=== PATIENT | male | born 1945 | race Caucasian/White ===

== ENCOUNTER → 2017-03-02 | Outpatient (CLI) | payer OTHER | LOC: BHFA 14:45 | PROVIDERS: ATTEND Internal Medicine Cardiovascular Disease | DX: I71.9 Aortic aneurysm of unspecified site, without rupture (principal) ==

== ENCOUNTER → 2017-03-16 | Outpatient (CLI) | payer OTHER ==
[~2017-03-16] MED LIST: IOPAMIDOL (ISOVUE 370) 100 ML BTL IV ONE
== END ==
LOC: FIMAGING 15:57
PROVIDERS: ATTEND Internal Medicine Cardiovascular Disease
DX: I71.2 Thoracic aortic aneurysm, without rupture (principal); I25.10 Atherosclerotic heart disease of native coronary artery without angina pectoris
CPT/HCPCS: 75574; Q9967

== ENCOUNTER 2017-03-20 07:14 | Day surgery (SDC) | payer OTHER ==
[2017-03-20] MEDS ORDERED: ASPIRIN EC 325 MG TAB PO ONE ×2 (08:08→08:50)
[2017-03-20] MEDS ORDERED: FAMOTIDINE 20 MG TAB PO ONE (08:08)
[2017-03-20] MEDS ORDERED: NS 1,000 ML IV ONE (08:08)
[2017-03-20] MEDS ORDERED: diphenhydrAMINE 25 MG CAP PO ONE ×2 (08:08→08:50)
[2017-03-20] MEDS ORDERED: DIAZEPAM 5 MG TAB PO ONE (08:08)
--- NOTE | 2017-03-20 08:39 | CPEKG ---
Heart Rate: 45 RR Interval: 1333 P-R Interval: 220 QRSD Interval: 124 QT Interval: 504 QTC Interval: 437 P [place]: -19 QRS [place]: -51 T Wave [place]: 80 EKG Severity - ABNORMAL ECG - EKG Impression: BRADYCARDIA WITH IRREGULAR RATE 37-52 EKG Impression: NONSPECIFIC IVCD WITH LAD EKG Impression: LEFT VENTRICULAR HYPERTROPHY Electronically Signed By: Joel Head 23-Mar-2017 07:51:05
[2017-03-20] MEDS ORDERED: DIAZEPAM 5 MG TAB ONE (08:50)
[2017-03-20] MEDS ORDERED: FAMOTIDINE 20 MG TAB ONE (08:50)
[2017-03-20] MEDS ORDERED: LIDOCAINE 1% 300 MG/30 ML SDV ONE (08:52)
[2017-03-20] MEDS ORDERED: fentaNYL 100 MCG/2 ML INJ ONE (08:52)
[2017-03-20] MEDS ORDERED: MIDAZOLAM 2 MG/2 ML VIAL ONE (08:52)
[2017-03-20] MEDS ORDERED: IOPAMIDOL (ISOVUE-370) 150 ML BTL IV ONE (08:53)
[2017-03-20 09:07] LABS: % IMMATURE GRANULYOCYTES 0.2 % (0.0-1.1); ABSOLUTE IMMATURE GRANULOCYTES 0.01 10^3/uL (0.00-0.10); ADD DIFF? NO; ADD MORPH? NO; ADD SCAN? NO; ATYPICAL LYMPHOCYTE FLAG 10 (0-99); FRAGMENT RBC FLAG 20 (0-99); HEMATOCRIT 38.9 % (40.0-51.0); HEMOGLOBIN 13.4 g/dL (13.7-17.5); LEFT SHIFT FLG 0 (0-99); LIPEMIA HEMOLYSIS FLAG 90 (0-99); MEAN CELL HEMOGLOBIN 32.5 pg (27.9-34.1); MEAN CELL HEMOGLOBIN CONCENTR. 34.4 g/dL (32.4-36.7); MEAN CELL VOLUME 94.4 fL (81.5-99.8); MEAN PLATELET VOLUME 10.1 fL (8.7-11.7); PLATELET CLUMPS FLAG 10 (0-99); PLATELET COUNT 180 10^3/uL (150-400); RED BLOOD CELL COUNT 4.12 10^6/uL (4.40-6.38); RED CELL DISTRIBUTION WIDTH 13.9 % (11.5-15.2)
[2017-03-20 09:14] LABS: ANION GAP 13 mEq/L (8-16); CALCIUM 9.8 mg/dL (8.5-10.4); CARBON DIOXIDE 27 mEq/l (22-31); CHLORIDE 101 mEq/L (97-110); CHOLESTEROL 130 mg/dL (140-220); CHOLESTEROL/HDL RATIO 2.24 RATIO (1.00-4.97); CREATININE 1.4 mg/dL (0.7-1.3); GLOMERULAR FILTRATION RATE 50; GLUCOSE 95 mg/dL (70-100); HIGH DENSITY LIPOPROTEIN 58 mg/dL (40-65); LDL/HDL RATIO 1.09 RATIO (1.00-3.64); LOW DENSITY LIPOPROTEIN 63 mg/dL (80-100); MAGNESIUM 2.3 mg/dL (1.6-2.3); NON-HIGH DENSITY LIPOPROTEIN 72 mg/dL (90-129); SODIUM 141 mEq/L (134-144); TRIGLYCERIDE 48 mg/dL (40-150); VERY LOW DENSITY LIPOPROTEINS 9 mg/dL (8-25)
[2017-03-20 09:19] LABS: INR 1.13 (0.83-1.16); PROTIME(PATIENT) 14.4 SEC (12.0-15.0)
[2017-03-20] MEDS ORDERED: methylPREDNISolone SOD SUCC 125 MG/2 ML VIAL ONE (09:39)
[2017-03-20] MEDS ORDERED: LABETALOL HCL 5 MG/ML 20 ML MDV ONE (10:45)
--- NOTE | 2017-03-20 11:53 | CPIP ---
[f rep st] INVASIVE CARDIAC PROCEDURE DATE OF PROCEDURE: 03/20/2017 PROCEDURE PERFORMED: 1. Coronary angiography. 2. Right heart catheterization. INDICATION: Preoperative evaluation prior to AVR and ascending aortic aneurysm repair. ACCESS: Patient was prepped and draped in sterile fashion, 1% lidocaine was used to anesthetize the right inguinal region. A 6-Nauruan introducer sheath was placed selectively into the right common f emoral artery via modified Seldinger technique. The 6-Nauruan introducer sheath was later exchanged for a 7-Nauruan introducer sheath via exchange wire technique. A 7-Nauruan introducer sheath was plac ed selectively into the right common femoral vein via modified Seldinger technique. CORONARY ANGIOGRAPHY: A 6-Nauruan JL6 catheter was advanced to the left main coronary artery, and im ages obtained. The left main coronary artery bifurcated into LAD and circumflex coronary arteries. The left main coronary artery appeared normal. The left anterior descending coronary artery had mi ld diffuse disease throughout. In the midvessel, there was a long segmental 40% stenosis present. The left anterior descending coronary artery gave rise to 1 prominent diagonal branch. The diagonal branch had mild luminal irregularities throughout. There was no stenosis greater than 20%. The ci rcumflex coronary artery was a moderate-sized vessel. The circumflex coronary artery was nondominan t. Circumflex coronary artery had an ostial 20% stenosis present. In the midvessel, there was a lo ng segmental 30% stenosis present. The second OM artery was a dominant OM artery. The second OM ar ernie had no significant flow-limiting disease. A 6-Nauruan JR4 was advanced to the right coronary ar ernie, and images obtained. The right coronary artery was diffusely ectatic in the proximal and mids egment. There was no significant obstructive disease within the vessel. RIGHT HEART CATHETERIZATION: Right heart catheter was advanced into the right atrium, and pressure obtained. The right atrial pressure was 12 mmHg. The catheter was then advanced in the right ventr icle, and pressure obtained. The right ventricular pressure was 39/9 mmHg. Catheter was then advanc ed in the pulmonary artery, and pressure obtained. Pulmonary artery pressure was 40/23 mmHg with a mean pulmonary artery pressure of 30 mmHg. Catheter was then advanced in the pulmonary capillary we dge position, and pressure obtained. The pulmonary capillary wedge pressure was 21 mmHg. The cardi ac output was 7.95. The cardiac index was 3.61. COMPLICATIONS: None. CONCLUSIONS: 1. Mild to moderate coronary artery disease without flow limitation. 2. Mild pulmonary hypertension with a mean pulmonary artery pressure of 30 mmHg and a transpulmonar y gradient of 9 mmHg. 3. Plan is for surgical evaluation. /[id number]/MODL
== END 2017-03-20 15:00 | disposition home or self-care (01) ==
LOC: FCATH 07:14
PROVIDERS: ATTEND Internal Medicine Cardiovascular Disease
PROC: B2111ZZ Fluoroscopy of Multiple Coronary Arteries using Low Osmolar Contrast (ICD-10-PCS; principal; 2017-03-20)
PROC: 4A023N6 Measurement of Cardiac Sampling and Pressure, Right Heart, Percutaneous Approach (ICD-10-PCS; principal; 2017-03-20)
DX: I71.2 Thoracic aortic aneurysm, without rupture (principal); I35.1 Nonrheumatic aortic (valve) insufficiency; I25.10 Atherosclerotic heart disease of native coronary artery without angina pectoris; I27.2 Other secondary pulmonary hypertension; R07.89 Other chest pain; R06.02 Shortness of breath; R94.39 Abnormal result of other cardiovascular function study; G47.33 Obstructive sleep apnea (adult) (pediatric); E66.9 Obesity, unspecified; I10 Essential (primary) hypertension; E11.9 Type 2 diabetes mellitus without complications; Z68.31 Body mass index [BMI] 31.0-31.9, adult
CPT/HCPCS: C1760; J1200; J1644; J2250; J3010; J3490; Q9967

== ENCOUNTER → 2017-05-05 | Outpatient (CLI) | payer OTHER | LOC: BHFA 13:15 | PROVIDERS: ATTEND Thoracic Surgery (Cardiothoracic Vascular Surgery) | DX: Z01.810 Encounter for preprocedural cardiovascular examination (principal) ==

== ENCOUNTER 2017-06-08 07:15 | Inpatient (IN) | payer OTHER ==
--- NOTE | 2017-06-07 08:27 | PDGENHP ---
History and Physical - Chief Complaint AI, asc ao aneurysm - History of Present Illness 72M with moderate AI and asc ao aneurysm of 5.1 cm here for elective aneurysm repair and possible AVR. Pt without c/o acute CHF since last seen at clinic. He denies light-headedness, SOB, chest pain, abdominal pain. BLE are chronically edematous. History Information - Allergies/Home Medication List Allergies/Adverse Reactions: carrot Allergy (Verified 04/30/17 13:33) Corticosteroids (Glucocorticoids) Allergy (Verified 03/20/17 06:48) Penicillins Allergy (Verified 06/11/15 02:35) Home Medications: Doxazosin Mesylate [Cardura 4 MG (*)] 4 mg PO HS 09/11/14 [Last Taken 06/07/17] Furosemide [Lasix 40 MG (*)] 40 mg PO DAILY 09/11/14 [Last Taken 06/07/17] metFORMIN HCL [Glucophage 1000 mg] 1,000 mg PO BIDMEAL 09/11/14 [Last Taken 04/12] Ascorbic Acid [Vitamin C 500 mg (*)] 500 mg PO BID 03/20/17 [Last Taken 06/07/17 ] Aspirin [Aspirin 81mg (*)] 81 mg PO DAILY 03/20/17 [Last Taken 06/06/17] Cholecalciferol Vit D3 [Vitamin D3 (*)] 5,000 units PO DAILY 03/20/17 [Last Taken 06/07/17] Labetalol HCl [Trandate 200 mg (*)] 200 mg PO BID 03/20/17 [Last Taken 06/07/17] Melatonin [Melatonin 1 mg] 1 - 3 mg PO HS PRN 03/20/17 [Last Taken 06/07/17] Multivitamins [Multivitamin (*)] 1 each PO DAILY 03/20/17 [Last Taken 06/07/17] Valsartan [Diovan (*)] 80 mg PO BID 03/20/17 [Last Taken 06/07/17] Atorvastatin Calcium [Lipitor 40 mg (*)] 40 mg PO HS 04/28/17 [Last Taken ] Cyanocobalamin [Vitamin B12 (*)] 1,000 mcg PO DAILY 04/28/17 [Last Taken ] Herbals/Supplements -Info Only 1 ea PO DAILY 04/28/17 [Last Taken 06/07/17] I have personally reviewed and updated: medical history, social history, surgical history - Past Medical History CHF, diabetes type 2, hypertension - Surgical History Reports: neurological surgery (age 20) - Social History Smoking Status: Never smoked Review of Systems Review of Systems: ROS: 10pt was reviewed & negative except for what was stated in HPI & below Physical Exam Physical Exam: Constitutional: no apparent distress, appears nourished, not in pain, chronically ill appearing Eyes: anicteric sclera Ears, Nose, Mouth, Throat: hearing normal Cardiovascular: regular rate and rhythym, edema Respiratory: no respiratory distress Gastrointestinal: soft, non-tender abdomen Skin: warm, normal color Psychiatric: interacting appropriately, not anxious, not encephalopathic, poor memory Lab Data & Imaging Review Patient ABO/Rh O POSITIVE 06/02/17 11:37 Antibody Screen NEGATIVE 06/02/17 11:37 Assessment & Plan Assessment: 72M with asc ao aneurysm and moderate AI Plan: aneurysm repair, possible AVR
[~2017-06-08 07:15] MED LIST changes: +ADENOSINE 6 MG/2 ML VIAL ONE; +ALBUMIN 5% 250 ML BOTTLE IV ONE; +AMINOCAPROIC ACID 5 GM/20 ML VIAL IV ONE; +AMINOCAPROIC ACID 5 GM/20 ML VIAL ONE; +AMIODARONE HCL 150 MG/3 ML VIAL ONE; +CALCIUM CHLORIDE 1 GM/10 ML INJ ONE; +CITRATE DEXTROSE SOLN 500 ML BAG MISC ONE; +CITRATE DEXTROSE SOLN 500 ML BAG ONE; +DOPamine/DEXTROSE/250 ML BAG IV ONE; +HEPARIN 10,000 UNIT/10 ML MDV ONE; +INSULIN REGULAR HUMAN 100 UNIT in NS 100 ML IV ONE; -IOPAMIDOL (ISOVUE 370) 100 ML BTL IV ONE; +LIDOCAINE 2% 100 MG/5 ML SYR ONE; +MAGNESIUM SULFATE 1 GM/2 ML VIAL ONE; +MANNITOL 25% 12.5 GM/50 ML VIAL IVP ONE; +MILRINONE/DEXTROSE/100 ML BAG IV ONE; +MUPIROCIN 2% 22 GM OINT NS ONE; +NA BICARBONATE 50 MEQ/50 ML VIAL ONE; +NOREPINEPHRINE BITARTRATE 16 MG in NS 250 ML IV ONE; +PHENYLEPHRINE HCL 50 MG in NS 250 ML IV ONE; +POTASSIUM Cl (KCl) 20 MEQ/50 ML BAG IV ONE; +PROTAMINE SULFATE 50 MG/5 ML VIAL IVP ONE; +SODIUM BICARBONATE 20 MEQ, LIDOCAINE 1% 10 ML in NORMOSOL-R 1,000 ML MISC ONE; +ceFAZolin 1 GM VIAL ONE; +ceFAZolin 2 GM/SWFI 2 GM/20 ML SYR IVP ONE; +methylPREDNISolone SOD SUCC 1 GM/8 ML VIAL ONE; +niCARdipine/NACL 200 ML IV SCH; +niCARdipine/NACL/200 ML BAG IV ONE
[2017-06-08] MEDS ORDERED: LIDOCAINE 1% 2 ML INJ ONE (09:12)
[2017-06-08] MEDS ORDERED: MUPIROCIN 2% 22 GM OINT NS ONE (09:15)
[2017-06-08] MEDS ORDERED: ceFAZolin 2 GM/SWFI 2 GM/20 ML SYR IVP ONE (09:15)
[2017-06-08] MEDS ORDERED: LR 1,000 ML IV ONE (09:21)
[2017-06-08] MEDS ORDERED: LIDOCAINE 1% 2 ML INJ ID PRN (09:21)
[2017-06-08] MEDS ORDERED: MIDAZOLAM 2 MG/2 ML VIAL IVP ONE (09:38)
[2017-06-08] MEDS ORDERED: PROPOFOL/EMULSION 500 MG/50 ML BOTTLE IV ONE (09:45)
[2017-06-08] MEDS ORDERED: fentaNYL 250 MCG/5 ML INJ ONE (09:45)
[2017-06-08] MEDS ORDERED: MIDAZOLAM 2 MG/2 ML VIAL ONE (09:45)
[2017-06-08] MEDS ORDERED: REMIFENTANIL HCL 1 MG VIAL ONE (09:45)
[2017-06-08] MEDS ORDERED: ONDANSETRON 4 MG/2 ML VIAL ONE (09:46)
[2017-06-08] MEDS ORDERED: LIDOCAINE 2% 100 MG/5 ML SYR ONE (09:46)
[2017-06-08] MEDS ORDERED: ROCURONIUM 100 MG/10 ML VIAL ONE (09:46)
[2017-06-08] MEDS ORDERED: DEXAMETHASONE 4 MG/ML VIAL ONE ×2 (09:46)
[2017-06-08] MEDS ORDERED: CALCIUM CHLORIDE 1 GM/10 ML INJ ONE (09:46)
[2017-06-08] MEDS ORDERED: PHENYLEPHRINE HCL 100 MCG/ML SYR ONE ×2 (09:46)
[2017-06-08] MEDS ORDERED: LIDOCAINE HCL 160 MG/4 ML LTA KIT TP ONE (09:52)
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
[2017-06-08] MEDS ORDERED: ALBUMIN 5% 250 ML BOTTLE IV ONE (12:11)
[2017-06-08] MEDS ORDERED: MAGNESIUM SULF 2 GM/WATER 50 ML BAG IV ONE (12:11)
[2017-06-08] MEDS ORDERED: DEXMEDETOMIDINE IN 0.9 % NACL 100 ML IV SCH (13:00)
[2017-06-08] MEDS ORDERED: DEXMEDETOMIDINE HCL 400 MCG in NS 100 ML IV SCH (13:00)
[2017-06-08] MEDS ORDERED: epHEDrine SULFATE 10 MG/ML SYR ONE ×2 (13:34→13:37)
[2017-06-08] MEDS ORDERED: GLYCOPYRROLATE 0.2 MG/1 ML VIAL ONE ×2 (13:37)
[2017-06-08] MEDS ORDERED: MINERAL OIL 10 ML VIAL ONE (13:44)
[2017-06-08] MEDS ORDERED: SUGAMMADEX SODIUM 200 MG/2 ML VIAL IVP ONE (13:59)
[2017-06-08] MEDS ORDERED: ACETAMINOPHEN 500 MG TAB PO PRN (14:18)
[2017-06-08] MEDS ORDERED: LABETALOL HCL 5 MG/ML 20 ML MDV IVP PRN (14:18)
[2017-06-08] MEDS ORDERED: NALOXONE HCL 0.4 MG/ML INJ IVP PRN (14:18)
[2017-06-08] MEDS ORDERED: PROMETHAZINE HCL 25 MG/ML INJ IVP PRN (14:18)
[2017-06-08] MEDS ORDERED: LR 500 ML IV PRN (14:18)
[2017-06-08] MEDS ORDERED: ONDANSETRON 4 MG/2 ML VIAL IVP PRN ×2 (14:18→14:30)
[2017-06-08] MEDS ORDERED: OXYCODONE/APAP 5/325 TAB PO PRN (14:18)
[2017-06-08] MEDS ORDERED: HYDROCODONE/APAP 5/325 TAB PO PRN (14:18)
[2017-06-08] MEDS ORDERED: ALBUTEROL 3 ML DEYVIAL IH PRN (14:18)
[2017-06-08] MEDS ORDERED: METOCLOPRAMIDE 10 MG/2 ML VIAL IVP PRN ×2 (14:18→14:30)
[2017-06-08] MEDS ORDERED: fentaNYL 100 MCG/2 ML INJ IVP PRN ×2 (14:18→14:30)
[2017-06-08] MEDS ORDERED: DEXAMETHASONE 4 MG/ML VIAL IVP PRN (14:18)
[2017-06-08] MEDS ORDERED: MEPERIDINE 25 MG/ML SYR IVP PRN (14:18)
[2017-06-08] MEDS ORDERED: ACETAMINOPHEN 650 MG SUPP PR PRN (14:30)
[2017-06-08] MEDS ORDERED: BISACODYL 10 MG SUPP PR PRN (14:30)
[2017-06-08] MEDS ORDERED: INSULIN REGULAR HUMAN 100 UNIT in NS 100 ML IV SCH (14:30)
[2017-06-08] MEDS ORDERED: POLYETHYLENE GLYCOL 3350 17 GM PKT PO PRN (14:30)
[2017-06-08] MEDS ORDERED: NS 1,000 ML IV SCH (14:30)
[2017-06-08] MEDS ORDERED: PANTOPRAZOLE SODIUM 40 MG VIAL IVP ONE (14:30)
[2017-06-08] MEDS ORDERED: MAGNESIUM HYDROXIDE 30 ML UDCUP PO PRN (14:30)
[2017-06-08] MEDS ORDERED: POTASSIUM Cl (KCl) 50 ML IV PRN (14:30)
[2017-06-08] MEDS ORDERED: MAGNESIUM SULF 2 GM/WATER 50 ML IV ONE (14:30)
[2017-06-08] MEDS ORDERED: D50W 25 GM/50 ML SYR IVP PRN (14:30)
[2017-06-08] MEDS ORDERED: SODIUM CL NASAL 45 ML BTL EACHNARE PRN (14:30)
[2017-06-08] MEDS ORDERED: LACTULOSE 20 GM/30 ML UDCUP PO PRN (14:30)
[2017-06-08] MEDS ORDERED: CEPACOL LOZENGE PO PRN (14:30)
[2017-06-08] MEDS ORDERED: ONDANSETRON DISINTEGRATING 4 MG TAB PO PRN (14:30)
[2017-06-08] MEDS: ALBUMIN 5% 250 ML IV PRN ×2 (15:36→15:38)
--- NOTE | 2017-06-08 15:43 | ASMTCMCOM ---
CM Note CM Note Notes: 72 year old male admitted for AAA and AV. Had an elective AAAR and AVR. He has a hx of CHF, DM-2, HTN. Therapies to eval, JUNI to follow for discharge needs. Date Signed: 06/08/2017 03:43 PM Electronically Signed By:Carmen Magallanes LCSW
--- NOTE | 2017-06-08 16:15 | POSTANESTH ---
Post Anesthetic Evaluation Cardiovascular Status: Similar to Pre-Op Cond Respiratory Status: Similar to Pre-op Cond., Tx Decrease in SpO2 Level of Consciousness/Mental Status: Can Participate in Eval, Mildly Sleepy, Arousable Pain Control: Adequate, Prn Tx Ordered Nausea/Vomiting Control: Adequate, Prn Tx Ordered Complications Possibly Related to Anesthesia: None Noted
[2017-06-08] MEDS ORDERED: ALBUMIN 5% 500 ML BOTTLE IV ONE ×2 (16:56→22:09)
[2017-06-08] MEDS ORDERED: DOPamine/DEXTROSE/250 ML BAG IV ONE (16:57)
[2017-06-08] MEDS ORDERED: ALBUMIN 5% 500 ML IV ONE ×2 (17:30→22:30)
[2017-06-08 17:37] LABS: CALCULATED OXYGEN SATURATION 92 % (92-95); O2 CONCENTRATIION 60 % (0-100)
[2017-06-08 17:37] LABS: CALCULATED OXYGEN SATURATION 93 % (92-95); O2 CONCENTRATIION 60 % (0-100)
[2017-06-08 19:26] LABS: BICARBONATE 26 mEq/L (22-26); MEASURED OXYGEN SATURATION 92 % (92-95); PCO2 51 mmHg (34-38); PO2 64 mmHg (65-75); TCO2 27 mEq/L (23-27)
[2017-06-08] MEDS ORDERED: NALOXONE HCL 0.4 MG/ML INJ ONE (19:39)
[2017-06-08] MEDS ORDERED: KETOROLAC 15 MG/1 ML SDV ONE (19:39)
[2017-06-08] MEDS ORDERED: NALOXONE HCL 0.4 MG/ML INJ IVP ONE (19:45)
[2017-06-08] MEDS: KETOROLAC 15 MG/1 ML SDV IVP SCH (20:04)
[2017-06-08] MEDS: MUPIROCIN 2% 22 GM OINT NS SCH (21:31)
[2017-06-08] MEDS: SENNOSIDES/DOCUSATE SODIUM TAB PO SCH (21:32)
[2017-06-08] MEDS: ceFAZolin 2 GM/DEXTROSE 100 ML IV SCH (22:20)
[2017-06-09 00:58] LABS: HEMATOCRIT 25.2 % (40.0-51.0); HEMOGLOBIN 8.7 g/dL (13.7-17.5); MEAN CELL HEMOGLOBIN 32.2 pg (27.9-34.1); MEAN CELL HEMOGLOBIN CONCENTR. 34.5 g/dL (32.4-36.7); MEAN CELL VOLUME 93.3 fL (81.5-99.8); RED BLOOD CELL COUNT 2.7 10^6/uL (4.40-6.38); RED CELL DISTRIBUTION WIDTH 13.9 % (11.5-15.2)
[2017-06-09] MEDS: KETOROLAC 15 MG/1 ML SDV IVP SCH ×4 (01:01→19:31)
--- NOTE | 2017-06-09 03:23 | GOP ---
[f rep st] OPERATIVE REPORT DATE OF OPERATION: 06/08/2017 SURGEON: Valeriy Bhatt DO STEWARD/STEWARDESS: Wilfredo Casiano PA-C ANESTHESIOLOGIST: Markus Garcia MD PREOPERATIVE DIAGNOSIS: Aortic insufficiency with ascending aortic aneurysm. POSTOPERATIVE DIAGNOSIS: Aortic insufficiency with ascending aortic aneurysm. PROCEDURE PERFORMED: 1. Ascending aorta replacement #32 Hemashield graft. 2. Aortic valve replacement with a 25 Magna bioprosthesis. FINDINGS: DESCRIPTION OF PROCEDURE: The patient was consented for surgery, brought to the operating room, intu bated. Monitoring lines were placed. He was prepped and draped in sterile classical manner. Sterno neeta was performed. The pericardium was densely adherent to the epicardium, from presumed previous p ericarditis. Sharp dissection was performed, marsupializing the aorta which measured 5.5 cm and the right atrium. Transverse arch was cannulated, as was the right atrium. Cardiopulmonary bypass was b egun. Retrograde placement appeared to be unnaturally easy. 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 We th en convert to bicaval cannulation, only to be certain that there was not some other anomalous situati on, and opened the right atrium on bypass. There was, in fact, a persistent left-sided cava, so no f urther exposure was necessary. I then closed the right atrium, arrested the heart with cross-clampin g the aorta at the sinotubular junction where it measured 3.5 cm and giving direct coronary perfusion throughout the procedure, as well as topical hypothermia and systemic cooling. We then excised a thickened retracted trileaflet valve. The anulus was somewhat dilated. Sinuses we re mildly dilated, but thick walled. For that reason, no root replacement was performed. We then pl aced a 25 mm Magna valve in a supraannular position with interrupted 2-0 Tycron pledgeted mattress kimble tures. We then sized the patient for a 32 Hemashield graft which was sewn end-to-side both proximall y and distally with 3-0 Prolene, reinforced with BioGlue. They were tested, and no leak was identifi ed. We then removed the cross-clamp with suction on the ascending aortic vent with spontaneous cardi ac activity noted to resume. We spent some time in Trendelenburg, de-airing the patient with an LV s ump and ascending aortic vent. When no further air was identified, he was easily weaned from bypass. Heparin was reversed with protamine. The cannula was removed and oversewn. We spent some time correcting coagulopathy, and when we were satisfied he was hemodynamically stable and no longer bleeding, the sternum was closed, as was the thymic fat and pericardium. The patient w as returned to ICU in stable condition. SURGEON: Valeriy Bhatt DO /[id number]/MODL
--- NOTE | 2017-06-09 04:54 | GCON ---
[f rep st] CONSULTATION CALL CENTER PROFESSIONAL CONSULTATION DATE OF CONSULTATION: 06/08/2017 REASON FOR ADMISSION: Postoperative ascending aortic aneurysm repair and aortic valve replacement. HISTORY OF PRESENT ILLNESS: The patient is a 72-year-old white male with an extensive past medical h istory including congestive heart failure, diabetes, hypertension. He was again examined postoperati vely after receiving an aneurysm repair and aortic valve replacement. He was extubated postoperative ly and he is currently somewhat sedated, and slightly agitated. He is unable to provide any history. All history is gleaned from the medical record. PAST MEDICAL HISTORY: Again significant for congestive heart failure, ascending aortic aneurysm, hyp ertension, diabetes. ALLERGIES: Include carrots, glucocorticoids, and penicillin. MEDICATIONS: At home include vitamin B12, atorvastatin, valsartan, melatonin, labetalol, aspirin, ch olecalciferol, ascorbic acid, metformin, Lasix, and Cardura. SOCIAL HISTORY: No history of tobacco use, unknown alcohol use. PHYSICAL EXAMINATION: VITAL SIGNS: Blood pressure is 168/72, pulse is 45, respirations 20, temperat ure is 36.9, oxygen saturation 95% on supplemental oxygen. GENERAL: He is a well-developed, mildly overweight, elderly white male, who is resting comfortably on supplemental oxygen. HEENT: Eyes are PERRLA, EOMI. Throat exam is deferred. NECK: Supple. There is no cervical adenopathy. HEART: Re gular rate and rhythm with a 2/6 systolic murmur of the left sternal border without radiation. LUNGS : Diminished breath sounds, but no wheeze. ABDOMEN: Soft, nontender. Bowel sounds are present in all 4 quadrants. EXTREMITIES: No clubbing, cyanosis, or edema. LABORATORY DATA: Laboratories are currently pending. Chest x-ray is currently pending. IMPRESSION: 1. Status post aortic aneurysm repair and aortic valve replacement. 2. Respiratory, currently stable. 3. Diabetes. 4. Hypertension. 5. Congestive heart failure. RECOMMENDATIONS: 1. Adequate pain control. 2. DVT and PE prophylaxis, holding anticoagulation now. 3. Aggressive blood sugar control. 4. Follow blood pressure closely. 5. PT and OT. 6. Early ambulation. /[id number]/MODL
[2017-06-09] MEDS: ceFAZolin 2 GM/DEXTROSE 100 ML IV SCH ×3 (05:27→21:36)
[2017-06-09 06:34] LABS: % IMMATURE GRANULYOCYTES 0.3 % (0.0-1.1); ABSOLUTE IMMATURE GRANULOCYTES 0.02 10^3/uL (0.00-0.10); ADD DIFF? NO; ADD MORPH? NO; ADD SCAN? NO; ATYPICAL LYMPHOCYTE FLAG 0 (0-99); FRAGMENT RBC FLAG 0 (0-99); HEMATOCRIT 28.1 % (40.0-51.0); HEMOGLOBIN 9.8 g/dL (13.7-17.5); LEFT SHIFT FLG 40 (0-99); LIPEMIA HEMOLYSIS FLAG 90 (0-99); MEAN CELL HEMOGLOBIN 31.9 pg (27.9-34.1); MEAN CELL HEMOGLOBIN CONCENTR. 34.9 g/dL (32.4-36.7); MEAN CELL VOLUME 91.5 fL (81.5-99.8); MEAN PLATELET VOLUME 9.9 fL (8.7-11.7); PLATELET CLUMPS FLAG 10 (0-99); PLATELET COUNT 94 10^3/uL (150-400); RED BLOOD CELL COUNT 3.07 10^6/uL (4.40-6.38); RED CELL DISTRIBUTION WIDTH 14.3 % (11.5-15.2)
[2017-06-09] MEDS: HEPARIN 5,000 UNIT/0.5 ML SYR SC SCH (06:46)
[2017-06-09 07:03] LABS: ANION GAP 12 mEq/L (8-16); CALCIUM 8.8 mg/dL (8.5-10.4); CARBON DIOXIDE 25 mEq/l (22-31); CHLORIDE 108 mEq/L (97-110); CREATININE 0.9 mg/dL (0.7-1.3); GLOMERULAR FILTRATION RATE > 60; GLUCOSE 115 mg/dL (70-100); POTASSIUM 4.4 mEq/L (3.5-5.2); SODIUM 145 mEq/L (134-144)
--- NOTE | 2017-06-09 07:55 | SOAPPROG ---
SOAP Progress Note Assessment/Plan: POD #1: Ascending aortic replacement with #32 graft, aortic valve replacement with #25 Magna bioprosthesis Asc ao aneurysm with mod AI s/p asc ao replacement and AVR with bioprosthesis - Wean dopamine as tolerated - AL to remain while on pressors - CTs to suction d/t air leak - FC to be dc'd - SCDs for DVT prophylaxis, heparin SQ on hold while platelets depressed Acute blood loss anemia - s/p 2U PRBC, 2U FFP, 1U platelets with continual ooze - will monitor and transfuse prn Chronic class II CHF, diastolic - HF meds when appropriate h/o remote TBI with pre-confusion - Slightly more confused today without evidence of neurological injury Subjective: Denies pain. Objective: Vital Signs Temp Pulse Resp BP Pulse Ox 37.3 C 53 L 16 125/58 H 98 06/09/17 07:48 06/09/17 07:48 06/09/17 07:48 06/09/17 07:48 06/09/17 07:48 Laboratory Results 06/09/17 06:20 06/09/17 06:20 06/08/17 06/09/17 06/10/17 05:59 05:59 05:59 Intake Total 3743.7 Output Total 2970 75 Balance 773.7 -75 Physical Exam - Physical Exam General Appearance: WD/WN, alert, no apparent distress EENT: No scleral icterus (R), No scleral icterus (L) Neck: normal inspection Respiratory: No respiratory distress Cardiac/Chest: bradycardia Abdomen: non-tender, soft, No guarding Skin: normal color, warm/dry Extremities: pedal edema Neuro/Psych: no motor/sensory deficits, alert, normal mood/affect, cognition abnormalities ICD10 Worksheet Patient Problems: Problems Problem Status Onset S/P AVR (aortic valve replacement) Acute S/P aortic aneurysm repair Acute Aortic aneurysm Chronic Aortic insufficiency Chronic
[2017-06-09] MEDS ORDERED: ASPIRIN 81 MG CHEWABLE TAB PO SCH (09:00)
--- NOTE | 2017-06-09 09:09 | PDINTPN ---
[place] Progress Note Assessment/Plan: Assessment: * Status post ascending aortic aneurysm repair and aortic valve replacement * Congestive heart failure * Hypertension * Diabetes-blood sugars well controlled * History of closed head injury Plan: Continue present care Out of bed to chair PT/OT Speech evaluation Subjective: Sitting up in chair. Complains of thirst. Pain is tolerable. Denies any dyspnea Objective: Vital Signs Temp Pulse Resp BP Pulse Ox 37.2 C 47 L 14 112/50 L 97 06/09/17 08:00 06/09/17 09:00 06/09/17 09:00 06/09/17 09:00 06/09/17 09:00 Laboratory Results 06/09/17 06:20 06/09/17 06:20 06/08/17 06/09/17 06/10/17 05:59 05:59 05:59 Intake Total 3743.7 Output Total 2970 75 Balance 773.7 -75 Physical Exam - Physical Exam General Appearance: alert, no apparent distress EENT: PERRL/EOMI, normal ENT inspection Neck: non-tender, full range of motion Respiratory: decreased breath sounds, rhonchi (Few), prolonged expiration, No wheezing Cardiac/Chest: normal peripheral pulses, regular rate, rhythm Peripheral Pulses: 2+: carotid (R), carotid (L), femoral (R), femoral (L), dorsalis-pedis (R), dorsalis-pedis (L) Abdomen: normal bowel sounds, non-tender, soft Male Genitalia: deferred Rectal: deferred Skin: normal color, warm/dry Extremities: normal range of motion, non-tender, normal inspection, normal capillary refill Neuro/Psych: alert ICD10 Worksheet Patient Problems: Problems Problem Status Onset S/P AVR (aortic valve replacement) Acute S/P aortic aneurysm repair Acute Aortic aneurysm Chronic Aortic insufficiency Chronic
[2017-06-09] MEDS: ALBUMIN 5% 250 ML IV PRN (09:13)
[2017-06-09 11:35] LABS: POTASSIUM 4.3 mEq/L (3.5-5.2)
[2017-06-09] MEDS: PANTOPRAZOLE SODIUM 40 MG TAB PO SCH (14:15)
[2017-06-09] MEDS: SENNOSIDES/DOCUSATE SODIUM TAB PO SCH ×3 (14:15→22:35)
[2017-06-09] MEDS: MUPIROCIN 2% 22 GM OINT NS SCH ×2 (14:16→22:04)
[2017-06-09] MEDS ORDERED: ALBUMIN 5% 250 ML BOTTLE IV ONE (14:48)
[2017-06-09 15:25] LABS: POTASSIUM 4.4 mEq/L (3.5-5.2)
[2017-06-09] MEDS ORDERED: ALBUMIN 5% 250 ML IV ONE (15:30)
--- NOTE | 2017-06-09 15:38 | ASMTCMCOM ---
CM Note CM Note Notes: Therapies recommending SNF Rehab. Spoke to patient and his sister, Nerissa and they would like if he could go to [facility]. [facility] sent a referral. Date Signed: 06/09/2017 03:37 PM Electronically Signed By:Carmen Magallanes LCSW
[2017-06-09] MEDS: INSULIN LISPRO 100 UNIT/ML SC SCH (19:18)
[2017-06-09] MEDS: ACETAMINOPHEN 325 MG TAB PO PRN (22:35)
[2017-06-10] MEDS: KETOROLAC 15 MG/1 ML SDV IVP SCH ×2 (03:11→08:25)
[2017-06-10 04:40] LABS: % IMMATURE GRANULYOCYTES 0.3 % (0.0-1.1); ABSOLUTE IMMATURE GRANULOCYTES 0.03 10^3/uL (0.00-0.10); ADD DIFF? NO; ADD MORPH? NO; ADD SCAN? NO; ATYPICAL LYMPHOCYTE FLAG 0 (0-99); FRAGMENT RBC FLAG 30 (0-99); HEMATOCRIT 24.6 % (40.0-51.0); HEMOGLOBIN 8.4 g/dL (13.7-17.5); LEFT SHIFT FLG 30 (0-99); LIPEMIA HEMOLYSIS FLAG 90 (0-99); MEAN CELL HEMOGLOBIN 32.1 pg (27.9-34.1); MEAN CELL HEMOGLOBIN CONCENTR. 34.1 g/dL (32.4-36.7); MEAN CELL VOLUME 93.9 fL (81.5-99.8); MEAN PLATELET VOLUME 10.6 fL (8.7-11.7); PLATELET CLUMPS FLAG 10 (0-99); PLATELET COUNT 88 10^3/uL (150-400); RED BLOOD CELL COUNT 2.62 10^6/uL (4.40-6.38); RED CELL DISTRIBUTION WIDTH 14.9 % (11.5-15.2)
[2017-06-10 04:57] LABS: ANION GAP 7 mEq/L (8-16); CALCIUM 8.9 mg/dL (8.5-10.4); CARBON DIOXIDE 29 mEq/l (22-31); CHLORIDE 107 mEq/L (97-110); CREATININE 1.2 mg/dL (0.7-1.3); GLOMERULAR FILTRATION RATE 59; GLUCOSE 117 mg/dL (70-100); POTASSIUM 4.5 mEq/L (3.5-5.2); SODIUM 143 mEq/L (134-144)
[2017-06-10] MEDS: ACETAMINOPHEN 325 MG TAB PO PRN ×4 (05:41→22:56)
[2017-06-10] MEDS: ceFAZolin 2 GM/DEXTROSE 100 ML IV SCH (05:42)
[2017-06-10] MEDS ORDERED: traMADol 50 MG TAB PO PRN (07:35)
--- NOTE | 2017-06-10 07:43 | SOAPPROG ---
SOAP Progress Note Assessment/Plan: POD #2: Ascending aortic replacement with #32 graft, aortic valve replacement with #25 Magna bioprosthesis Asc ao aneurysm with mod AI s/p asc ao replacement and AVR with bioprosthesis - CTs to suction d/t air leak - SCDs for DVT prophylaxis, heparin SQ on hold while platelets depressed Acute blood loss anemia - Stable s/p 2U PRBC, 2U FFP, 1U platelets Chronic class II CHF, diastolic - HF meds when appropriate DM 2, well-controlled (A1c 5.1) - Will transition ISS to home Metformin HTN - Reintroduction of home medications as tolerated BPH - Voiding without isses, Doxazosin restarted h/o remote TBI with preop confusion - Stable post-op Disposition - Eventual transfer to SNF Subjective: No complaints. Comfortable. Objective: Vital Signs Temp Pulse Resp BP Pulse Ox 36.9 C 83 20 159/73 H 97 06/09/17 19:00 06/10/17 06:00 06/10/17 06:00 06/10/17 06:00 06/10/17 06:00 Laboratory Results 06/10/17 04:00 06/10/17 04:00 06/09/17 06/10/17 06/11/17 05:59 05:59 05:59 Intake Total 3743.7 2323 Output Total 2970 1650 Balance 773.7 673 Physical Exam - Physical Exam General Appearance: WD/WN, alert, no apparent distress EENT: No scleral icterus (R), No scleral icterus (L) Neck: normal inspection Respiratory: No respiratory distress Cardiac/Chest: regular rate, rhythm Abdomen: non-tender, soft, No distended Skin: normal color, warm/dry Extremities: pedal edema Neuro/Psych: alert, normal mood/affect, cognition abnormalities ICD10 Worksheet Patient Problems: Problems Problem Status Onset S/P AVR (aortic valve replacement) Acute S/P aortic aneurysm repair Acute Aortic aneurysm Chronic Aortic insufficiency Chronic
[2017-06-10] MEDS: INSULIN LISPRO 100 UNIT/ML SC SCH ×3 (08:21→19:00)
[2017-06-10] MEDS: PANTOPRAZOLE SODIUM 40 MG TAB PO SCH (08:27)
[2017-06-10] MEDS: SENNOSIDES/DOCUSATE SODIUM TAB PO SCH ×2 (08:27→23:38)
[2017-06-10] MEDS ORDERED: KETOROLAC 15 MG/1 ML SDV IVP PRN (09:09)
--- NOTE | 2017-06-10 09:09 | PDINTPN ---
Drag [place] Progress Note Assessment/Plan: Assessment: * Status post ascending aortic aneurysm repair and aortic valve replacement * Congestive heart failure * Pain-well tolerated * Hypertension * Diabetes-blood sugars well controlled * History of closed head injury Plan: Continue present care Out of bed to chair PT/OT Subjective: Up in chair. Comfortable. Somewhat confused Objective: Vital Signs Temp Pulse Resp BP Pulse Ox 36.7 C 64 24 H 151/69 H 98 06/10/17 07:00 06/10/17 08:00 06/10/17 08:00 06/10/17 08:00 06/10/17 08:00 Laboratory Results 06/10/17 04:00 06/10/17 04:00 06/09/17 06/10/17 06/11/17 05:59 05:59 05:59 Intake Total 3743.7 2323 Output Total 2970 1650 250 Balance 773.7 673 -250 Physical Exam - Physical Exam General Appearance: alert, no apparent distress EENT: PERRL/EOMI Neck: non-tender Respiratory: crackles (Few basilar crackles), prolonged expiration, No wheezing Cardiac/Chest: regular rate, rhythm, systolic murmur Peripheral Pulses: 2+: carotid (R), carotid (L), femoral (R), femoral (L), dorsalis-pedis (R), dorsalis-pedis (L) Abdomen: normal bowel sounds, non-tender, soft Male Genitalia: deferred Rectal: deferred Skin: normal color, warm/dry ICD10 Worksheet Patient Problems: Problems Problem Status Onset S/P AVR (aortic valve replacement) Acute S/P aortic aneurysm repair Acute Aortic aneurysm Chronic Aortic insufficiency Chronic
[2017-06-10] MEDS: MUPIROCIN 2% 22 GM OINT NS SCH (10:05)
[2017-06-10 12:54] LABS: HEMATOCRIT 22.4 % (40.0-51.0); HEMOGLOBIN 7.8 g/dL (13.7-17.5)
[2017-06-10] MEDS: DOXAZOSIN MESYLATE 4 MG TAB PO SCH ×2 (13:11→23:37)
--- NOTE | 2017-06-10 13:33 | SOAPPROG ---
[place] Progress Note Assessment/Plan: Assessment: Plan: 06/10/17 13:26 pt w new onset dark sanguinous drainage w/o hemodynamic compromise hct stable first 24 hours, pt coagulopathic intraop with sternal marrow profuse bleeding, resolved w products and time CXR w/o R effusion, was not in left side will check coags and give products and follow Objective: Vital Signs Temp Pulse Resp BP Pulse Ox 36.7 C 62 17 105/52 L 93 06/10/17 07:00 06/10/17 11:00 06/10/17 11:00 06/10/17 11:00 06/10/17 11:00 Laboratory Results 06/10/17 11:42 06/10/17 04:00 06/09/17 06/10/17 06/11/17 05:59 05:59 05:59 Intake Total 3743.7 2323 500 Output Total 2970 1650 425 Balance 773.7 673 75 ICD10 Worksheet Patient Problems: Problems Problem Status Onset S/P AVR (aortic valve replacement) Acute S/P aortic aneurysm repair Acute Aortic aneurysm Chronic Aortic insufficiency Chronic
[2017-06-10 14:38] LABS: APTT 38.7 SEC (23.0-38.0); INR 1.41 (0.83-1.16); PROTIME(PATIENT) 17.2 SEC (12.0-15.0)
[2017-06-10] MEDS ORDERED: FUROSEMIDE 40 MG/4 ML VIAL IVP ONE ×2 (18:30→21:45)
[2017-06-10] MEDS ORDERED: PHYTONADIONE 10 MG in NS 50 ML IV ONE (20:30)
[2017-06-10 21:07] LABS: HEMATOCRIT 23.3 % (40.0-51.0); HEMOGLOBIN 8.2 g/dL (13.7-17.5)
[2017-06-10] MEDS ORDERED: diphenhydrAMINE 25 MG CAP PO ONE (22:30)
[2017-06-11] MEDS: DOXAZOSIN MESYLATE 4 MG TAB PO SCH ×2 (00:03→20:26)
[2017-06-11] MEDS ORDERED: FUROSEMIDE 20 MG/2 ML VIAL IVP ONE ×3 (02:00→09:00)
[2017-06-11 04:39] LABS: HEMATOCRIT 24.2 % (40.0-51.0); HEMOGLOBIN 8.5 g/dL (13.7-17.5); MEAN CELL HEMOGLOBIN 31.3 pg (27.9-34.1); MEAN CELL HEMOGLOBIN CONCENTR. 35.1 g/dL (32.4-36.7); RED BLOOD CELL COUNT 2.72 10^6/uL (4.40-6.38); RED CELL DISTRIBUTION WIDTH 16.7 % (11.5-15.2)
[2017-06-11 05:25] LABS: ANION GAP 6 mEq/L (8-16); CALCIUM 8.4 mg/dL (8.5-10.4); CARBON DIOXIDE 30 mEq/l (22-31); CHLORIDE 106 mEq/L (97-110); GLOMERULAR FILTRATION RATE > 60; GLUCOSE 112 mg/dL (70-100); POTASSIUM 3.6 mEq/L (3.5-5.2); SODIUM 142 mEq/L (134-144)
[2017-06-11] MEDS ORDERED: PROTOCOL POTASSIUM 1 DOSE MISC PRN (06:23)
[2017-06-11 06:57] LABS: INR 1.23 (0.83-1.16); PROTIME(PATIENT) 15.5 SEC (12.0-15.0)
[2017-06-11 06:58] LABS: APTT 37.1 SEC (23.0-38.0)
--- NOTE | 2017-06-11 08:10 | SOAPPROG ---
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 and AVR with bioprosthesis - CTs to suction d/t air leak - SCDs for DVT prophylaxis, heparin SQ on hold while platelets depressed Acute blood loss anemia with coagulopathy - Continued ooze from sternum, transfuse prn, monitor H/H Chronic class II CHF, diastolic - HF meds when appropriate DM 2, well-controlled (A1c 5.1) - Will transition ISS to home Metformin HTN - Reintroduction of home medications as tolerated BPH - Voiding without issue, Doxazosin restarted h/o remote TBI with preop confusion - Stable post-op Disposition - Eventual transfer to SNF Subjective: Thirty, otherwise no complaints. Objective: Vital Signs Temp Pulse Resp BP Pulse Ox 37.3 C 79 13 128/59 H 95 06/11/17 02:00 06/11/17 07:00 06/11/17 07:00 06/11/17 07:00 06/11/17 07:00 Laboratory Results 06/11/17 04:30 06/11/17 04:30 06/10/17 06/11/17 06/12/17 05:59 05:59 05:59 Intake Total 2323 5836 Output Total 1650 3460 Balance 673 2376 PT 15.5 SEC (12.0-15.0) H 06/11/17 06:30 INR 1.23 (0.83-1.16) H 06/11/17 06:30 Physical Exam - Physical Exam General Appearance: WD/WN, alert, no apparent distress EENT: No scleral icterus (R), No scleral icterus (L) Neck: normal inspection Respiratory: No respiratory distress Cardiac/Chest: regular rate, rhythm Abdomen: non-tender, soft, No distended Skin: normal color, warm/dry Extremities: pedal edema, swelling Neuro/Psych: no motor/sensory deficits, alert, normal mood/affect, cognition abnormalities ICD10 Worksheet Patient Problems: Problems Problem Status Onset S/P AVR (aortic valve replacement) Acute S/P aortic aneurysm repair Acute Aortic aneurysm Chronic Aortic insufficiency Chronic
--- NOTE | 2017-06-11 08:50 | PDINTPN ---
[facility] [employer] Progress Note Assessment/Plan: Assessment: * Status post ascending aortic aneurysm repair and aortic valve replacement * Congestive heart failure * Pain-well tolerated * Anemia * Hypertension * Diabetes-blood sugars well controlled * History of closed head injury-mental status improved. Plan: Continue present care Out of bed to chair PT/OT Follow H&H closely Subjective: Up in chair. More conversant today. Alert and oriented. Objective: Vital Signs Temp Pulse Resp BP Pulse Ox 37.0 C 63 14 134/64 H 98 06/11/17 08:00 06/11/17 08:00 06/11/17 08:00 06/11/17 08:00 06/11/17 08:00 Laboratory Results 06/11/17 04:30 06/11/17 04:30 06/10/17 06/11/17 06/12/17 05:59 05:59 05:59 Intake Total 2323 5836 Output Total 1650 3460 200 Balance 673 2376 -200 PT 15.5 SEC (12.0-15.0) H 06/11/17 06:30 INR 1.23 (0.83-1.16) H 06/11/17 06:30 Physical Exam - Physical Exam General Appearance: alert, no apparent distress EENT: PERRL/EOMI Neck: non-tender, supple Respiratory: decreased breath sounds, crackles (Few basilar) Cardiac/Chest: normal peripheral pulses, regular rate, rhythm, systolic murmur Abdomen: normal bowel sounds, non-tender, soft Male Genitalia: deferred Rectal: deferred Skin: normal color, warm/dry ICD10 Worksheet Patient Problems: Problems Problem Status Onset S/P AVR (aortic valve replacement) Acute S/P aortic aneurysm repair Acute Aortic aneurysm Chronic Aortic insufficiency Chronic
[2017-06-11] MEDS: PANTOPRAZOLE SODIUM 40 MG TAB PO SCH (09:11)
[2017-06-11] MEDS: SENNOSIDES/DOCUSATE SODIUM TAB PO SCH ×2 (09:12→20:26)
[2017-06-11] MEDS: POTASSIUM Cl (KCl) 50 ML IV SCH ×4 (09:13→13:11)
[2017-06-11] MEDS ORDERED: AMIODARONE HCL 200 ML IV ONE (09:52)
[2017-06-11] MEDS ORDERED: AMIODARONE HCL 100 ML IV ONE (09:52)
[2017-06-11] MEDS: INSULIN LISPRO 100 UNIT/ML SC SCH ×4 (09:59→18:39)
[2017-06-11] MEDS ORDERED: niCARdipine/NACL 200 ML IV SCH (10:30)
[2017-06-11 10:58] LABS: HEMATOCRIT 30.7 % (40.0-51.0); HEMOGLOBIN 10.9 g/dL (13.7-17.5)
[2017-06-11 11:08] LABS: POTASSIUM 3.4 mEq/L (3.5-5.2)
[2017-06-11 14:12] LABS: HEMATOCRIT 28.7 % (40.0-51.0); HEMOGLOBIN 10.1 g/dL (13.7-17.5)
[2017-06-11 14:32] LABS: POTASSIUM 4.1 mEq/L (3.5-5.2)
--- NOTE | 2017-06-11 15:36 | ASMTCMCOM ---
CM Note CM Note Notes: [facility] has accepted patient. Patient to get a GI consult today. CM will follow. Date Signed: 06/11/2017 03:35 PM Electronically Signed By:Madeline Rivas LCSW
[2017-06-11] MEDS ORDERED: AMIODARONE HCL 540 MG in D5W 300 ML IV ONE (16:00)
[2017-06-11] MEDS: metFORMIN HCL 500 MG TAB PO SCH (18:09)
[2017-06-11] MEDS: ACETAMINOPHEN 325 MG TAB PO PRN (20:27)
[2017-06-12 00:48] LABS: POTASSIUM 3.5 mEq/L (3.5-5.2)
[2017-06-12] MEDS: POTASSIUM Cl (KCl) 50 ML IV SCH ×3 (03:09→04:11)
[2017-06-12 06:40] LABS: HEMATOCRIT 27.4 % (40.0-51.0); HEMOGLOBIN 9.6 g/dL (13.7-17.5); MEAN CELL HEMOGLOBIN 31.6 pg (27.9-34.1); MEAN CELL VOLUME 90.1 fL (81.5-99.8); RED BLOOD CELL COUNT 3.04 10^6/uL (4.40-6.38); RED CELL DISTRIBUTION WIDTH 16.3 % (11.5-15.2)
[2017-06-12 06:57] LABS: ANION GAP 6 mEq/L (8-16); CALCIUM 8.5 mg/dL (8.5-10.4); CARBON DIOXIDE 30 mEq/l (22-31); CHLORIDE 104 mEq/L (97-110); CREATININE 0.8 mg/dL (0.7-1.3); GLOMERULAR FILTRATION RATE > 60; GLUCOSE 104 mg/dL (70-100); POTASSIUM 3.9 mEq/L (3.5-5.2); SODIUM 140 mEq/L (134-144)
--- NOTE | 2017-06-12 07:49 | SOAPPROG ---
SOAP Progress Note Assessment/Plan: POD #4: Ascending aortic replacement with #32 graft, aortic valve replacement with #25 Magna bioprosthesis Asc ao aneurysm with mod AI s/p asc ao replacement and AVR with bioprosthesis - CTs to bulb suction - SCDs for DVT prophylaxis, heparin SQ on hold d/t bleeding Acute blood loss anemia with coagulopathy - Bleeding seems to have stopped, monitor H/H, CT output Chronic class II CHF, diastolic - HF meds when appropriate DM 2, well-controlled (A1c 5.1) - Transitioned to full dose Metformin, continue BS checks with likely d/c tomorrow HTN - Reintroduction of home medications as tolerated BPH - Voiding without issue, Doxazosin restarted h/o remote TBI with preop confusion - Stable post-op Disposition - Eventual transfer to SNF Paroxysmal atrial fibrillation - Conversion to SR with amiodarone - AC held d/t bleeding Subjective: No complaints. Breathing better. No chest pain. Objective: Vital Signs Temp Pulse Resp BP Pulse Ox 37.3 C 64 20 109/58 L 94 06/12/17 07:34 06/12/17 07:34 06/12/17 07:34 06/12/17 07:34 06/12/17 07:34 Laboratory Results 06/12/17 06:30 06/12/17 06:30 06/11/17 06/12/17 06/13/17 05:59 05:59 05:59 Intake Total 5836 1262 Output Total 3460 2605 Balance 2376 -1343 PT 15.5 SEC (12.0-15.0) H 06/11/17 06:30 INR 1.23 (0.83-1.16) H 06/11/17 06:30 ICD10 Worksheet Patient Problems: Problems Problem Status Onset S/P AVR (aortic valve replacement) Acute S/P aortic aneurysm repair Acute Aortic aneurysm Chronic Aortic insufficiency Chronic
[2017-06-12] MEDS ORDERED: POTASSIUM Cl (KCl) 50 ML IV ONE (08:24)
--- NOTE | 2017-06-12 08:43 | SOAPPROG ---
SOAP Progress Note Assessment/Plan: Assessment: * Status post ascending aortic aneurysm repair and aortic valve replacement * Congestive heart failure * Pain-well tolerated * Anemia-hemoglobin hematocrit stable * Hypertension * Diabetes-blood sugars well controlled * History of closed head injury-mental status improved. Plan: Down step-down unit Out of bed to chair PT/OT Follow H&H closely Subjective: Up in chair. Very conversant. Good appetite. Pain well tolerated Objective: Vital Signs Temp Pulse Resp BP Pulse Ox 37.3 C 64 20 109/58 L 94 06/12/17 07:34 06/12/17 07:34 06/12/17 07:34 06/12/17 07:34 06/12/17 07:34 Laboratory Results 06/12/17 06:30 06/12/17 06:30 06/11/17 06/12/17 06/13/17 05:59 05:59 05:59 Intake Total 5836 1262 Output Total 3460 2605 Balance 2376 -1343 PT 15.5 SEC (12.0-15.0) H 06/11/17 06:30 INR 1.23 (0.83-1.16) H 06/11/17 06:30 Physical Exam - Physical Exam General Appearance: alert, no apparent distress EENT: PERRL/EOMI Neck: non-tender, supple Respiratory: decreased breath sounds, No respiratory distress, No crackles, No wheezing Cardiac/Chest: normal peripheral pulses, regular rate, rhythm, systolic murmur Abdomen: normal bowel sounds, non-tender, soft Male Genitalia: deferred Rectal: deferred Skin: normal color, warm/dry Extremities: normal range of motion, non-tender, normal inspection, normal capillary refill Neuro/Psych: no motor/sensory deficits, alert, normal mood/affect, oriented x 3 ICD10 Worksheet Patient Problems: Problems Problem Status Onset S/P AVR (aortic valve replacement) Acute S/P aortic aneurysm repair Acute Aortic aneurysm Chronic Aortic insufficiency Chronic
[2017-06-12] MEDS ORDERED: metFORMIN HCL 500 MG TAB PO SCH (09:00)
[2017-06-12] MEDS: INSULIN LISPRO 100 UNIT/ML SC SCH ×3 (09:03→17:54)
[2017-06-12] MEDS: SENNOSIDES/DOCUSATE SODIUM TAB PO SCH ×2 (09:03→21:09)
[2017-06-12] MEDS: AMIODARONE HCL 200 MG TAB PO SCH ×2 (09:03→21:12)
[2017-06-12] MEDS: PANTOPRAZOLE SODIUM 40 MG TAB PO SCH (09:04)
[2017-06-12] MEDS: metFORMIN HCL 500 MG TAB PO SCH ×3 (10:18→17:53)
[2017-06-12 20:07] LABS: POTASSIUM 4.2 mEq/L (3.5-5.2)
[2017-06-12] MEDS: DOXAZOSIN MESYLATE 4 MG TAB PO SCH (21:10)
[2017-06-13] MEDS ORDERED: hydrALAZINE 20 MG/ML VIAL ONE (05:16)
[2017-06-13] MEDS: hydrALAZINE 20 MG/ML VIAL IVP PRN ×2 (05:28→06:03)
--- NOTE | 2017-06-13 08:18 | SOAPPROG ---
[place] Progress Note Assessment/Plan: POD #5 Ascending aortic replacement with #32 graft, aortic valve replacement with #25 Magna bioprosthesis Asc ao aneurysm with mod AI s/p asc ao replacement and AVR with bioprosthesis - ASA held d/t postop bleeding. - Will continue CTs to bulb suction - SCDs for DVT prophylaxis, heparin SQ on hold d/t bleeding Paroxysmal atrial fibrillation - Remains in SR on amiodarone. Hold BB for now d/t bradycardia. - AC held d/t bleeding. Will resume ASA after chest tubes are out. Acute blood loss anemia with coagulopathy - Bleeding seems to have stopped. - H&H stable at 9.6/27.4. Plt count 99 (74). Will follow. - Chest tubes still draining. Will keep in place for today. - Will start Iron. Chronic class II CHF, diastolic - Resumed Valsartan today. No BB d/t bradycardia - Will consider diuresing tomorrow. DM 2, well-controlled (A1c 5.1) - Transitioned to full dose Metformin. HTN - SBP 150-160's overnight. Resumed half dose of home Valsartan today. Will increase as needed. BPH - Voiding without issue, Doxazosin restarted. H/o remote TBI with preop confusion - Stable post-op Disposition - Eventual transfer to SNF Subjective: Patient reports good pain control. No complaints. Objective: Vital Signs Temp Pulse Resp BP Pulse Ox 36.6 C 65 10 L 131/72 H 93 06/13/17 07:34 06/13/17 07:34 06/13/17 07:34 06/13/17 07:34 06/13/17 07:34 06/12/17 06/13/17 06/14/17 05:59 05:59 05:59 Intake Total 1262 650 Output Total 2605 1585 Balance -1343 -935 PT 15.5 SEC (12.0-15.0) H 06/11/17 06:30 INR 1.23 (0.83-1.16) H 06/11/17 06:30 Physical Exam - Physical Exam General Appearance: WD/WN, alert, no apparent distress Respiratory: lungs clear, decreased breath sounds (bases) Cardiac/Chest: regular rate, rhythm, other (+murmur LSB, sternum stable, steronotomy c/d/i) Abdomen: normal bowel sounds, non-tender, soft Skin: warm/dry Extremities: other (Mild lower extremity edema) Neuro/Psych: alert, normal mood/affect, oriented x 3 ICD10 Worksheet Patient Problems: Problems Problem Status Onset S/P AVR (aortic valve replacement) Acute S/P aortic aneurysm repair Acute Aortic aneurysm Chronic Aortic insufficiency Chronic
[2017-06-13 08:30] LABS: HEMATOCRIT 27.4 % (40.0-51.0); HEMOGLOBIN 9.6 g/dL (13.7-17.5); MEAN CELL HEMOGLOBIN 32.1 pg (27.9-34.1); MEAN CELL VOLUME 91.6 fL (81.5-99.8); RED BLOOD CELL COUNT 2.99 10^6/uL (4.40-6.38); RED CELL DISTRIBUTION WIDTH 15.9 % (11.5-15.2)
[2017-06-13 08:40] LABS: ANION GAP 8 mEq/L (8-16); CALCIUM 8.5 mg/dL (8.5-10.4); CARBON DIOXIDE 27 mEq/l (22-31); CHLORIDE 105 mEq/L (97-110); CREATININE 0.8 mg/dL (0.7-1.3); GLOMERULAR FILTRATION RATE > 60; GLUCOSE 98 mg/dL (70-100); POTASSIUM 4.1 mEq/L (3.5-5.2); SODIUM 140 mEq/L (134-144)
[2017-06-13] MEDS: INSULIN LISPRO 100 UNIT/ML SC SCH ×3 (08:50→18:10)
[2017-06-13] MEDS: ATORVASTATIN CALCIUM 40 MG TAB PO SCH (08:58)
[2017-06-13] MEDS: AMIODARONE HCL 200 MG TAB PO SCH ×2 (08:58→21:33)
[2017-06-13] MEDS: metFORMIN HCL 500 MG TAB PO SCH ×2 (08:58→18:12)
[2017-06-13] MEDS: VALSARTAN 40 MG TAB PO SCH ×2 (08:58→21:30)
[2017-06-13] MEDS: PANTOPRAZOLE SODIUM 40 MG TAB PO SCH (08:58)
[2017-06-13] MEDS: SENNOSIDES/DOCUSATE SODIUM TAB PO SCH ×2 (09:00→21:36)
[2017-06-13] MEDS: FERROUS SULFATE 325 MG TAB PO SCH ×2 (11:04→21:33)
[2017-06-13] MEDS: DOXAZOSIN MESYLATE 4 MG TAB PO SCH (21:33)
--- NOTE | 2017-06-13 22:16 | SOAPPROG ---
SOAP Progress Note Assessment/Plan: Assessment: CTS seen earlier today Better overall daily Pain well controlled Ambulating adequately afeb vss mild htn cor nsr on tele wd ok ctop serosanguinous still moderate cxr stable labs as expected with acute blood loss anemia but no evidence of ongoing bleed, adequate plts imp/plan Significant "slow" bleeding for 24-48 hrs post op but resolved x 48hrs. Likely has some underlying coagulopathy which could be looked into at a later date once his acute changes periop resolve. Avoiding a/c and asa for now but once ctubes out likely will add back asa and eval overtime re pros cons of full a/c ( likely no a/c unless afib recurrs). d/w PA Plan: 06/13/17 22:10 Objective: Vital Signs Temp Pulse Resp BP Pulse Ox 37.2 C 68 16 162/76 H 96 06/13/17 20:00 06/13/17 20:00 06/13/17 20:00 06/13/17 21:30 06/13/17 20:00 Laboratory Results 06/13/17 08:04 06/13/17 08:04 06/12/17 06/13/17 06/14/17 05:59 05:59 05:59 Intake Total 1262 650 840 Output Total 2605 1585 1045 Balance -1343 -935 -205 PT 15.5 SEC (12.0-15.0) H 06/11/17 06:30 INR 1.23 (0.83-1.16) H 06/11/17 06:30 ICD10 Worksheet Patient Problems: Problems Problem Status Onset S/P AVR (aortic valve replacement) Acute S/P aortic aneurysm repair Acute Aortic aneurysm Chronic Aortic insufficiency Chronic
[2017-06-14 05:24] LABS: HEMATOCRIT 27.6 % (40.0-51.0); HEMOGLOBIN 9.3 g/dL (13.7-17.5); MEAN CELL HEMOGLOBIN 31.2 pg (27.9-34.1); MEAN CELL HEMOGLOBIN CONCENTR. 33.7 g/dL (32.4-36.7); MEAN CELL VOLUME 92.6 fL (81.5-99.8); RED BLOOD CELL COUNT 2.98 10^6/uL (4.40-6.38); RED CELL DISTRIBUTION WIDTH 15.8 % (11.5-15.2)
--- NOTE | 2017-06-14 07:32 | SOAPPROG ---
[place] Progress Note Assessment/Plan: POD #6 Ascending aortic replacement with #32 graft, aortic valve replacement with #25 Magna bioprosthesis Asc ao aneurysm with mod AI s/p asc ao replacement and AVR with bioprosthesis - ASA held d/t postop bleeding. Will resume after chest tubes are out. - Chest tube output from CT#1 and CT#3 improved. Will remove CT#1 and #3. - Chest tube output from CT#2 persists. Will keep in place for today. - SCDs for DVT prophylaxis, heparin SQ on hold d/t bleeding - Will d/c pacing wires today. Paroxysmal atrial fibrillation - Remains in SR on amiodarone. Will continue to hold BB d/t bradycardia. - AC held d/t bleeding. Will resume ASA after chest tubes are out. Acute blood loss anemia with coagulopathy - Bleeding seems to have stopped. - H&H stable at 9.3/27.6. Plt count 112 (103). Will follow. - Chest tube output improved. Will d/c a couple of the drains today. - On Iron. Chronic class II CHF, diastolic - On Valsartan. No BB d/t bradycardia - Resumed home Lasix. DM 2, well-controlled (A1c 5.1) - On Metformin. HTN - Persists with SBP 140-160's overnight. Will increase Valsartan today to home dose. BPH - Voiding without issue, on Doxazosin. H/o remote TBI with preop confusion - Stable post-op Disposition - Eventual transfer to SNF Subjective: Patient reports good pain control. No complaints. Objective: Vital Signs Temp Pulse Resp BP Pulse Ox 36.8 C 54 L 16 153/82 H 97 06/14/17 07:22 06/14/17 07:22 06/14/17 07:22 06/14/17 07:22 06/14/17 07:22 Laboratory Results 06/14/17 05:15 06/13/17 08:04 06/13/17 06/14/17 06/15/17 05:59 05:59 05:59 Intake Total 650 840 Output Total 1585 1410 Balance -935 -570 PT 15.5 SEC (12.0-15.0) H 06/11/17 06:30 INR 1.23 (0.83-1.16) H 06/11/17 06:30 Physical Exam - Physical Exam General Appearance: WD/WN, alert, no apparent distress Respiratory: decreased breath sounds (bibasilarly), crackles (left base) Cardiac/Chest: regular rate, rhythm, other (soft murmur LSB, sternum stable, sternotomy c/d/i) Abdomen: normal bowel sounds, non-tender, soft Skin: warm/dry Extremities: other (minimal lower extremity edema) Neuro/Psych: alert, normal mood/affect, oriented x 3 ICD10 Worksheet Patient Problems: Problems Problem Status Onset S/P AVR (aortic valve replacement) Acute S/P aortic aneurysm repair Acute Aortic aneurysm Chronic Aortic insufficiency Chronic
[2017-06-14] MEDS: PANTOPRAZOLE SODIUM 40 MG TAB PO SCH (08:06)
[2017-06-14] MEDS: FERROUS SULFATE 325 MG TAB PO SCH ×2 (08:06→21:10)
[2017-06-14] MEDS: SENNOSIDES/DOCUSATE SODIUM TAB PO SCH ×2 (08:06→21:11)
[2017-06-14] MEDS: ATORVASTATIN CALCIUM 40 MG TAB PO SCH (08:07)
[2017-06-14] MEDS: metFORMIN HCL 500 MG TAB PO SCH ×2 (08:07→17:56)
[2017-06-14] MEDS: VALSARTAN 40 MG TAB PO SCH ×2 (08:07→21:11)
[2017-06-14] MEDS: AMIODARONE HCL 200 MG TAB PO SCH ×2 (08:07→21:11)
[2017-06-14] MEDS: INSULIN LISPRO 100 UNIT/ML SC SCH ×3 (08:08→17:57)
[2017-06-14] MEDS ORDERED: VALSARTAN 80 MG TAB PO SCH (09:00)
[2017-06-14] MEDS: FUROSEMIDE 40 MG TAB PO SCH (09:35)
[2017-06-14] MEDS: POTASSIUM CL 20 MEQ TAB PO SCH (09:35)
--- NOTE | 2017-06-14 16:27 | ASMTCMCOM ---
CM Note CM Note Notes: Reviewed chart regarding discharge plan, pt's progress. Per MD notes, CTs remain in place, pacing wires out today. Pt slowly improving, eventual d/c to SNF. [facility] previously set up; already accepted pt. Will need to fax updates to [facility] Thursday or Thursday. CM will cont to follow. Current Discharge Plan: [facility] Date Signed: 06/14/2017 04:26 PM Electronically Signed By:Kaylie Shen RN
[2017-06-14] MEDS: DOXAZOSIN MESYLATE 4 MG TAB PO SCH (21:10)
--- NOTE | 2017-06-15 06:29 | SOAPPROG ---
SOAP Progress Note Assessment/Plan: Assessment: POD#7 Ascending aortic replacement with #32 graft, aortic valve replacement with #25 Magna bioprosthesis Asc ao aneurysm with mod AI s/p asc ao replacement and AVR with bioprosthesis - ASA held d/t postop coagulopathy. - 2 of 3 chest tubes and TCPWs out. - SCDs for DVT prophylaxis, heparin SQ on hold d/t bleeding Paroxysmal atrial fibrillation - Remains in SR on amiodarone. BB avoided d/t bradycardia. - AC held d/t coagulopathy. Acute blood loss anemia with coagulopathy - Bleeding seems to have stopped. - H&H stable > 04/22. Plt count > 100. Will follow. - On Iron. Chronic class II CHF, diastolic - On Valsartan. No BB d/t bradycardia - Resumed home Lasix. DM 2, well-controlled (A1c 5.1) - On Metformin. HTN - Resumed home dose Valsartan. BPH - Voiding without issue, on Doxazosin. H/o remote TBI with cognitive impairment - Stable post-op. - SNF rehab. Plan: CT chest to eval for rt CINDY. Remove rt pleural tube if CT ok. Resume ASA in am. Consider resume low dose labetalol. Dispo - [facility] next 1-2 days. 06/15/17 06:26 Subjective: Doing ok. Comfortable. Pleased that legs no longer swollen. 1000 on IS. 2 large BMs. Objective: Vital Signs Temp Pulse Resp BP Pulse Ox 37.3 C 72 18 146/71 H 97 06/14/17 23:36 06/14/17 23:36 06/14/17 23:36 06/14/17 23:36 06/14/17 23:36 Laboratory Results 06/14/17 05:15 06/13/17 08:04 06/14/17 06/15/17 06/16/17 05:59 05:59 05:59 Intake Total 840 900 Output Total 1410 2320 Balance -570 -1420 PT 15.5 SEC (12.0-15.0) H 06/11/17 06:30 INR 1.23 (0.83-1.16) H 06/11/17 06:30 Holding SR 60s-70s, 1st degree AVB. SBP 130s-170s. 2 Lpm suppl O2 req. Adequate fluid balance. +3kg overall. CTOP down to 90ml last shift. Quality still somewhat sanguinous. CXR -> no visible rt PTX. Inc opacity rt chest. - Pending Discharge Pending Discharge Within 48 Hours: Yes Pending Discharge Date: 06/17/17 Pending Discharge Time: 11:00 Physical Exam - Physical Exam General Appearance: alert, no apparent distress, other (talkative) Respiratory: crackles (bibasilar), other (rt pleural tube to bulb suction, serosang drainage) Cardiac/Chest: regular rate, rhythm, other (Sternum grossly stable. Sternotomy CDI.) Abdomen: soft Skin: warm/dry Extremities: other (no visible edema) ICD10 Worksheet Patient Problems: Problems Problem Status Onset S/P AVR (aortic valve replacement) Acute S/P aortic aneurysm repair Acute Aortic aneurysm Chronic Aortic insufficiency Chronic
[2017-06-15 07:09] LABS: ANION GAP 7 mEq/L (8-16); CARBON DIOXIDE 29 mEq/l (22-31); CHLORIDE 104 mEq/L (97-110); CREATININE 0.8 mg/dL (0.7-1.3); GLOMERULAR FILTRATION RATE > 60; GLUCOSE 112 mg/dL (70-100); POTASSIUM 4.1 mEq/L (3.5-5.2); SODIUM 140 mEq/L (134-144)
[2017-06-15] MEDS: INSULIN LISPRO 100 UNIT/ML SC SCH ×3 (07:49→18:22)
[2017-06-15] MEDS: metFORMIN HCL 500 MG TAB PO SCH ×2 (08:59→18:33)
[2017-06-15] MEDS: VALSARTAN 40 MG TAB PO SCH (08:59)
[2017-06-15] MEDS: ATORVASTATIN CALCIUM 40 MG TAB PO SCH (08:59)
[2017-06-15] MEDS: PANTOPRAZOLE SODIUM 40 MG TAB PO SCH (09:00)
[2017-06-15] MEDS: SENNOSIDES/DOCUSATE SODIUM TAB PO SCH (09:01)
[2017-06-15] MEDS: ACETAMINOPHEN 325 MG TAB PO PRN (09:01)
[2017-06-15] MEDS: POTASSIUM CL 20 MEQ TAB PO SCH (09:01)
[2017-06-15] MEDS: FERROUS SULFATE 325 MG TAB PO SCH ×2 (09:02→20:42)
[2017-06-15] MEDS: AMIODARONE HCL 200 MG TAB PO SCH ×2 (09:02→20:43)
[2017-06-15] MEDS: FUROSEMIDE 40 MG TAB PO SCH (10:52)
[2017-06-15] MEDS: ASCORBIC ACID 500 MG TAB PO SCH (20:43)
[2017-06-15] MEDS: VALSARTAN 80 MG TAB PO SCH (20:43)
[2017-06-15] MEDS: DOXAZOSIN MESYLATE 4 MG TAB PO SCH (20:43)
[2017-06-15] MEDS ORDERED: SENNOSIDES/DOCUSATE SODIUM TAB PO PRN (21:00)
[2017-06-16 06:27] LABS: HEMATOCRIT 30.9 % (40.0-51.0); HEMOGLOBIN 10.5 g/dL (13.7-17.5); MEAN CELL HEMOGLOBIN 31.3 pg (27.9-34.1); MEAN CELL VOLUME 92.2 fL (81.5-99.8); RED BLOOD CELL COUNT 3.35 10^6/uL (4.40-6.38); RED CELL DISTRIBUTION WIDTH 15.1 % (11.5-15.2)
[2017-06-16 06:44] LABS: POTASSIUM 4.1 mEq/L (3.5-5.2)
--- NOTE | 2017-06-16 07:34 | SOAPPROG ---
SOAP Progress Note Assessment/Plan: POD #8: Ascending aortic replacement with #32 graft, aortic valve replacement with #25 Magna bioprosthesis Asc ao aneurysm with mod AI s/p asc ao replacement and AVR with bioprosthesis - All tubes/wires out - SCDs for DVT prophylaxis, heparin SQ on hold d/t bleeding Acute blood loss anemia with coagulopathy - H/H stable s/p multiple blood product transfusions Chronic class II CHF, diastolic - Diuretics/ARB restarted - BB held d/t bradycardia DM 2, well-controlled (A1c 5.1) - Transitioned to full dose Metformin with good BS control - BS checks stopped HTN - Home meds restarted BPH - Voiding without issue, Doxazosin restarted h/o remote TBI with preop confusion - Stable post-op Disposition - Eventual transfer to SNF Paroxysmal atrial fibrillation - Conversion to SR with amiodarone - AC held d/t bleeding Subjective: No complaints. Objective: Vital Signs Temp Pulse Resp BP Pulse Ox 36.9 C 69 17 154/80 H 96 06/16/17 04:00 06/16/17 04:00 06/16/17 04:00 06/16/17 04:00 06/16/17 04:00 Laboratory Results 06/16/17 06:15 06/16/17 06:15 06/15/17 06/16/17 06/17/17 05:59 05:59 05:59 Intake Total 1200 1230 Output Total 2695 1465 Balance -1495 -235 PT 15.5 SEC (12.0-15.0) H 06/11/17 06:30 INR 1.23 (0.83-1.16) H 06/11/17 06:30 Physical Exam - Physical Exam General Appearance: WD/WN, alert, no apparent distress EENT: No scleral icterus (R), No scleral icterus (L) Neck: normal inspection Respiratory: No respiratory distress Cardiac/Chest: regular rate, rhythm Abdomen: non-tender, soft, No distended Skin: warm/dry Extremities: No pedal edema Neuro/Psych: no motor/sensory deficits, alert, normal mood/affect, cognition abnormalities ICD10 Worksheet Patient Problems: Problems Problem Status Onset S/P AVR (aortic valve replacement) Acute S/P aortic aneurysm repair Acute Aortic aneurysm Chronic Aortic insufficiency Chronic
[2017-06-16] MEDS ORDERED: FUROSEMIDE 40 MG TAB PO SCH (09:00)
[2017-06-16] MEDS: AMIODARONE HCL 200 MG TAB PO SCH (09:03)
[2017-06-16] MEDS: metFORMIN HCL 500 MG TAB PO SCH ×2 (09:03→17:43)
[2017-06-16] MEDS: PANTOPRAZOLE SODIUM 40 MG TAB PO SCH (09:03)
[2017-06-16] MEDS: FERROUS SULFATE 325 MG TAB PO SCH ×2 (09:03→20:37)
[2017-06-16] MEDS: CYANO/VITAMIN B12 1000 MCG TAB PO SCH (09:03)
[2017-06-16] MEDS: POTASSIUM CL 20 MEQ TAB PO SCH (09:03)
[2017-06-16] MEDS: VALSARTAN 80 MG TAB PO SCH (09:04)
[2017-06-16] MEDS: ASCORBIC ACID 500 MG TAB PO SCH ×2 (09:04→20:38)
[2017-06-16] MEDS: MULTIVITAMINS 1 EACH TAB PO SCH (09:04)
[2017-06-16] MEDS: CHOLECALCIFEROL VIT D3 1,000 UNITS TAB PO SCH (09:04)
[2017-06-16] MEDS: ASPIRIN 81 MG CHEWABLE TAB PO SCH (10:24)
[2017-06-16] MEDS ORDERED: NS 500 ML IV ONE ×2 (11:48→14:56)
[2017-06-16 12:12] LABS: HEMATOCRIT 30.7 % (40.0-51.0); HEMOGLOBIN 10.4 g/dL (13.7-17.5)
--- NOTE | 2017-06-16 13:32 | ECHO ---
[email or web address] [place] [id number] Main: [phone] Fax: Transthoracic Echocardiogram Name: JAMARCUS POSADA MR#: [id number] Study Date: 06/16/2017 Study Time: 12:13 PM Date of : 1945 Age: 72 year(s) Height: 180.3 cm (71 in.) Weight: 106.14 kg (234 lb.) BSA: 2.25 m2 Gender: Male Examination: Limited Echo Indication: STAT LTD echo; eval for Pericardial effusion and LVFX Image Quality: Technically Difficult Contrast: Requested by: Wilfredo Casiano BP: 90 mmHg/62 mmHg Heart Rate: Rhythm: Indication: STAT LTD echo; eval for Pericardial effusion and LVFX Procedure Staff Certified Meeting Professional: Serena Daugherty Physician: Valeriy Magdaleno Requesting Provider: Conclusions: The ejection fraction is visually estimated to be 60 %. Mild LVOT obstruction. Small LV cavity with hyperdynamic function. . Bioprosthetic AVR. Mean aortic valve gradient 16. Trivial aortic valve regurgitation. Trivial anterior pericardial effusion. Measurements: Chambers Valvular Assessment AV/MV Valvular Assessment TV/PV Normal Normal Normal Name Value Range Name Value Range Name Value Range Visual EF: 60 % AV meanP mmHg ( - ) Continued Measurements: Findings: Left Ventricle: The ejection fraction is visually estimated to be 60 %. Mild LVOT obstruction. Small LV cavity with hyperdynamic function. . Aortic Valve: Mean aortic valve gradient 16. Trivial aortic valve regurgitation. Bioprosthetic AVR. Pericardium: Trivial anterior pericardial effusion. Patient: JAMARCUS POSADA Study Date: 06/16/2017 Page 1 of 2 12:13 PM (No Signature Object) Patient: JAMARCUS POSADA Study Date: 06/16/2017 Page 2 of 2 12:13 PM [id number]
[2017-06-16] MEDS ORDERED: NS 1,000 ML IV SCH (13:45)
[2017-06-16] MEDS ORDERED: AMIODARONE HCL 200 ML IV ONE (14:56)
[2017-06-16] MEDS ORDERED: AMIODARONE HCL 100 ML IV ONE (14:56)
--- NOTE | 2017-06-16 15:35 | ASMTCMCOM ---
CM Note CM Note Notes: 06/16/2017 Case Management Note Reviewed chart, spoke w/pt. Answered questions regarding [facility]. Pt wanted to be sure he was not transferring to [facility]. Reassured pt that [facility] is the accepting facility. Confirmed placement with [facility] today. Case Management d/c poc: remains to [facility] when medically stable. Case Management available should needs change. Date Signed: 06/16/2017 03:34 PM Electronically Signed By:Shereen Malik RN
[2017-06-16] MEDS: ATORVASTATIN CALCIUM 40 MG TAB PO SCH (20:37)
[2017-06-16] MEDS: DOXAZOSIN MESYLATE 4 MG TAB PO SCH (20:38)
[2017-06-16] MEDS ORDERED: AMIODARONE HCL 540 MG in D5W 300 ML IV ONE (21:30)
[2017-06-16] MEDS: HEPARIN 5,000 UNIT/0.5 ML SYR SC SCH (22:54)
[2017-06-17] MEDS: HEPARIN 5,000 UNIT/0.5 ML SYR SC SCH ×3 (05:21→21:14)
--- NOTE | 2017-06-17 08:26 | SOAPPROG ---
[place] Progress Note Assessment/Plan: Assessment: Plan: 06/10/17 13:26 pt w new onset dark sanguinous drainage w/o hemodynamic compromise hct stable first 24 hours, pt coagulopathic intraop with sternal marrow profuse bleeding, resolved w products and time CXR w/o R effusion, was not in left side will check coags and give products and follow 06/17/17 08:25 BP better w hydration NSR check CXR/CBC likely DC am Objective: Vital Signs Temp Pulse Resp BP Pulse Ox 36.8 C 86 16 110/72 94 06/17/17 08:00 06/17/17 08:00 06/17/17 08:00 06/17/17 08:00 06/17/17 08:00 Laboratory Results 06/16/17 12:00 06/16/17 06:15 06/16/17 06/17/17 06/18/17 05:59 05:59 05:59 Intake Total 1230 4087 Output Total 1465 1810 Balance -235 2277 PT 15.5 SEC (12.0-15.0) H 06/11/17 06:30 INR 1.23 (0.83-1.16) H 06/11/17 06:30 ICD10 Worksheet Patient Problems: Problems Problem Status Onset S/P AVR (aortic valve replacement) Acute S/P aortic aneurysm repair Acute Aortic aneurysm Chronic Aortic insufficiency Chronic
[2017-06-17 08:59] LABS: HEMOGLOBIN 10.2 g/dL (13.7-17.5); MEAN CELL HEMOGLOBIN 30.1 pg (27.9-34.1); MEAN CELL HEMOGLOBIN CONCENTR. 32.9 g/dL (32.4-36.7); MEAN CELL VOLUME 91.4 fL (81.5-99.8); RED BLOOD CELL COUNT 3.39 10^6/uL (4.40-6.38)
[2017-06-17] MEDS: FERROUS SULFATE 325 MG TAB PO SCH ×2 (09:47→20:40)
[2017-06-17] MEDS: ASCORBIC ACID 500 MG TAB PO SCH ×2 (09:47→20:40)
[2017-06-17] MEDS: metFORMIN HCL 500 MG TAB PO SCH ×2 (09:47→17:59)
[2017-06-17] MEDS: CHOLECALCIFEROL VIT D3 1,000 UNITS TAB PO SCH (09:47)
[2017-06-17] MEDS: ASPIRIN 81 MG CHEWABLE TAB PO SCH (09:48)
[2017-06-17] MEDS: CYANO/VITAMIN B12 1000 MCG TAB PO SCH (09:48)
[2017-06-17] MEDS: PANTOPRAZOLE SODIUM 40 MG TAB PO SCH (09:48)
[2017-06-17] MEDS: AMIODARONE HCL 200 MG TAB PO SCH ×2 (09:48→20:40)
[2017-06-17] MEDS: MULTIVITAMINS 1 EACH TAB PO SCH (09:48)
[2017-06-17] MEDS: ATORVASTATIN CALCIUM 40 MG TAB PO SCH (20:39)
[2017-06-17] MEDS: DOXAZOSIN MESYLATE 4 MG TAB PO SCH (20:40)
[2017-06-18] MEDS: HEPARIN 5,000 UNIT/0.5 ML SYR SC SCH (06:04)
[2017-06-18 07:24] VITALS: RESP 16
--- NOTE | 2017-06-18 07:34 | SOAPPROG ---
[place] Progress Note Assessment/Plan: Assessment: POD#10 Ascending aortic replacement with #32 graft, aortic valve replacement with #25 Magna bioprosthesis Asc ao aneurysm with mod AI s/p asc ao replacement and AVR with bioprosthesis - All tubes and wires out. - Antithrombotic prophylaxis with ASA alone given postop coagulopathy. Paroxysmal atrial fibrillation - Conversion to SR with amiodarone. - AC held d/t bleeding risk. Acute blood loss anemia with coagulopathy - Stable s/p massive transfusion. - H&H > 10/30 maintained. Plt count rebound noted. - On Iron. Chronic class II CHF, diastolic - On diuretics alone. - No ARB d/t relative hypotension. No BB d/t bradycardia. DM 2, well-controlled (A1c 5.1) - Transitioned back to full dose Metformin. Effective control and accuchecks stopped. HTN - Home meds on hold for overdiuresis with relatively low BP BPH - Voiding without issue, on Doxazosin. H/o remote TBI with cognitive impairment - Stable post-op. - SNF rehab. Plan: Ok for discharge. ARB to remain on hold until seen in office Tue 06/23 (so long as outpt SBPs < 160) 06/18/17 07:33 Subjective: Doing fine. Lots of questions and comments about post hospital course. No acute concerns. Objective: Vital Signs Temp Pulse Resp BP Pulse Ox 36.6 C 64 16 132/60 H 98 06/18/17 07:23 06/18/17 07:23 06/18/17 07:23 06/18/17 07:23 06/18/17 07:23 Laboratory Results 06/17/17 08:50 06/16/17 06:15 06/17/17 06/18/17 06/19/17 05:59 05:59 05:59 Intake Total 4087 1055 Output Total 1810 830 Balance 2277 225 PT 15.5 SEC (12.0-15.0) H 06/11/17 06:30 INR 1.23 (0.83-1.16) H 06/11/17 06:30 Improved SBP and adequate UOP s/p IVF/relaxed diuresis. No further AF. Min suppl O2 req. +5 kg fluid balance Physical Exam - Physical Exam General Appearance: alert, no apparent distress Respiratory: lungs clear (grossly) Cardiac/Chest: regular rate, rhythm, other (Sternum grossly stable. Sternotomy and CT sites CDI.) Abdomen: non-tender, soft Skin: warm/dry Extremities: swelling (trace - 1+ dependent) ICD10 Worksheet Patient Problems: Problems Problem Status Onset S/P AVR (aortic valve replacement) Acute S/P aortic aneurysm repair Acute Aortic aneurysm Chronic Aortic insufficiency Chronic
--- NOTE | 2017-06-18 08:31 | PDIAF ---
- Diagnosis Diagnosis: Aneursymal asc ao w AI, s/p tissue AVR, asc ao repl; postop PAF Code Status: Full Code - Medication Management Discharge Medications: Medications to Continue on Transfer Doxazosin Mesylate [Cardura 4 MG (*)] 4 mg PO HS 09/11/14 [Last Taken 06/07/17] Furosemide [Lasix 40 MG (*)] 40 mg PO DAILY 09/11/14 [Last Taken 06/07/17] metFORMIN HCL [Glucophage 1000 mg] 1,000 mg PO BIDMEAL 09/11/14 [Last Taken 04/12] Ascorbic Acid [Vitamin C 500 mg (*)] 500 mg PO BID 03/20/17 [Last Taken 06/07/17 ] Aspirin [Aspirin 81mg (*)] 81 mg PO DAILY 03/20/17 [Last Taken 06/06/17] Cholecalciferol Vit D3 [Vitamin D3 (*)] 5,000 units PO DAILY 03/20/17 [Last Taken 06/07/17] Melatonin [Melatonin 1 mg] 1 - 3 mg PO HS PRN 03/20/17 [Last Taken 06/07/17] Multivitamins [Multivitamin (*)] 1 each PO DAILY 03/20/17 [Last Taken 06/07/17] Atorvastatin Calcium [Lipitor 40 mg (*)] 40 mg PO HS 04/28/17 [Last Taken ] Cyanocobalamin [Vitamin B12 (*)] 1,000 mcg PO DAILY 04/28/17 [Last Taken ] Acetaminophen [Tylenol 325mg (*)] 325 - 650 mg PO Q4HRS PRN tab 06/18/17 [Last Taken Unknown] Amiodarone HCl [Pacerone (*)] 200 mg PO BID tab 06/18/17 [Last Taken Unknown] Ferrous Sulfate [Ferrous Sulf 325 MG (*)] 325 mg PO BID #10 tab 06/18/17 [Last Taken Unknown] Polyethylene Glycol 3350 [Miralax 17 gm (*)] 17 gm PO DAILY PRN pkt 06/18/17 [ Last Taken Unknown] Potassium Cl [Klor-Con 20 meq (*)] 20 meq PO DAILY tab 06/18/17 [Last Taken Unknown] Sennosides/Docusate Sodium [Senokot-S] 1 - 2 tab PO BID PRN tab 06/18/17 [Last Taken Unknown] traMADol [Ultram 50 mg (*)] 25 mg PO Q6HRS PRN tab 06/18/17 [Last Taken Unknown ] Discharge Medications: Refer to the Discharge Home Medication list for PRN reason. PICC Care - Routine: N/A - Orders Services needed: Registered Nurse (cardiorespiratory monitoring), Physical Therapy (sternal precautions x 4 more weeks), Occupational Therapy (functional recovery) Oxygen: prn SpO2 < 90% +/- activity Diet Recommendation: sodium restricted (2 grams daily), fluid restriction (use comment for amount) (2 liters daily) Diet Texture: Regular Texture Diet, Thin Liquids, Meds Whole w/Liquids Weigh Patient: daily Carbajal: Not applicable Wound Care Instructions: daily soap and water. ok to leave all wounds open to air. avoid ointments or under water immersion until all scabs off. Call Dr Bhatt's office for any wound concerns Activity/Weight Bearing Restrictions: Avoid lifting > 10 lbs with an outstretched arm x 4 weeks. Avoid push pull activities x 4 weeks Additional: Please call [facility] ([place]) for overnight wt gain > 2 lbs, absolute wt gain > 5 lbs, progressive leg swelling, resting HR > 120, SBP consistently > 140 or any wound concerns. Expect episodic atrial fibrillation. Accept if rate < 120 and BP > 100. Call with any concerns. - Labs/Radiology BMP Date: 06/22/17 (results to [facility]) CBC w/diff Date: 06/22/17 (results to [facility]) Imaging Orders: CXR prior to surgical appt Call or Fax Lab and Imaging Results to: Dr Bhatt's nurse, Maryellen Henning - Follow Up Care Current Providers and Referrals: Asuncion Conner MD [Primary Care Provider] - Valeriy Bhatt DO [Doctor of Osteopathy] - 06/23/17 (office will call with appointment time) Rylan Pringle MD [Medical Doctor] - follow up in 2 weeks ()
[2017-06-18] MEDS ORDERED: FUROSEMIDE 40 MG TAB PO SCH (09:00)
[2017-06-18] MEDS ORDERED: POTASSIUM CL 20 MEQ TAB PO SCH (09:00)
[2017-06-18] MEDS: CHOLECALCIFEROL VIT D3 1,000 UNITS TAB PO SCH (10:08)
[2017-06-18] MEDS: metFORMIN HCL 500 MG TAB PO SCH (10:09)
[2017-06-18] MEDS: ASCORBIC ACID 500 MG TAB PO SCH (10:09)
[2017-06-18] MEDS: PANTOPRAZOLE SODIUM 40 MG TAB PO SCH (10:09)
[2017-06-18] MEDS: MULTIVITAMINS 1 EACH TAB PO SCH (10:09)
[2017-06-18] MEDS: ASPIRIN 81 MG CHEWABLE TAB PO SCH (10:09)
[2017-06-18] MEDS: CYANO/VITAMIN B12 1000 MCG TAB PO SCH (10:09)
[2017-06-18] MEDS: FERROUS SULFATE 325 MG TAB PO SCH (10:09)
[2017-06-18] MEDS: AMIODARONE HCL 200 MG TAB PO SCH (10:10)
--- NOTE | 2017-06-18 13:14 | PDDCSUM ---
Discharge Summary Discharge Summary: DATE OF ADMISSION: 06/08/17 DATE OF DISCHARGE: 06/18/17 DISPOSITION: Transferred to [facility] PRINCIPAL DISCHARGE DIAGNOSES: 1. Aneurysmal ascending aorta, replaced with a dacron interposition graft 2. Moderately insufficient aortic valve, replaced with a bioprosthesis 3. Acute expected blood loss anemia with prolonged coagulopathy negating further use of anticoagulants 4. Postoperative paroxysmal atrial fibrillation 5. Postoperative sinus bradycardia with a first degree atrioventricular block FOLLOW UP APPOINTMENTS: 1. CV surgery: with Dr Bhatt at [facility] on 06/23. Office to call with appointment time. 2. Cardiology: with Dr Pringle at [facility] within 4-6 weeks. Appointment to be established during surgical visit. FOLLOW UP TESTIN. CBC and BMP on 06/22. Results to [facility]. 2. CXR prior to surgical appointment. ALLERGIES/SENSITIVITIES: PCN causing a rash, Erythromycin causing GI distress, Tilapia causing mouth/ throat blisters DISCHARGE MEDICATIONS: see medical administration record for full details Essentially as on admission (Lasix, Lipitor, metformin, doxazosin, MVIs, melatonin) with the following adjustments: 1. Hold Labetalol 200 mg BID 2. Hold Valsartan 80 mg BID NEW prescriptions: 1. Amiodarone 200 mg BID 2. KlorCon 20 meq daily 3. Ultram 25 mg q6h prn incisional pain 4. Ferrous sulfate 325 mg BID up to 1 more week 5. Oxygen at 1-2 Lpm continuously, or as directed by SpO2. CONSULTANTS: Pulmonology/critical care ([place]) PROCEDURES/IMAGIN/13 ([place]): Aortic valve replacement with a 25 mm Felipe Magna bovine pericardial bioprosthesis. Ascending aortic replacement with a 32 mm Hemashield graft. 06/[address]: negative for significant pleural effusions 06/16 ([place]): Transthoracic echocardiogram HISTORY OF PRESENT ILLNESS: 71 year old male with an aneurysmal aorta and chronic AI, recently admitted for CHF and discovered to have progressive chamber dilatation and worsening diastolic dysfunction. Medically optimized and referred for cardiac surgery. PERTINENT PAST MEDICAL HISTORY: Dilated cardiomyopathy, Chronic diastolic congestive heart failure, Chronic low leg edema, Obesity, Obstructive sleep apnea intolerant of CPAP, NIDDM, HTN, nonobstructive coronary and carotid disease, chronic kidney disease with recent baseline Cr 1.2-1.4, BPH, mild cognitive dysfunction s/p traumatic head injury at age 20 ABBREVIATED HOSPITAL COURSE BY ACTIVE PROBLEM LIST: 1. Asc ao aneurysm with mod AI - s/p tissue AVR with asc ao replacement. Aortic specimen negative for cystic medial necrosis. Antithrombotic prophylaxis with ASA alone given postop coagulopathy. 2. Chronic dCHF - Moderate volume overload actively diuresed with stable renal fx. BP liberalized to accommodate lasix. Postop echo notable for hyperdynamic LV with EF > 60%. Care with aggressive diuresis. 3. Acute expected blood loss anemia with coagulopathy - Stable s/p 8u PRBC, 5u FFP, 3U Plts, and 1u cryoprecipitate. No further transfusions after POD#3. Suspected to have underlying bleeding disorder. Hematology consult should be considered prior to future procedures. Started on a 2 week course of iron supplementation. 4. Postoperative paroxysmal atrial fibrillation - Converting to SR on amiodarone. Predominant rate 60s w 1st degree AVB. Adjunctive BB avoided. Anticoagulation deferred due to bleeding risk. 5. DM2 - Well-controlled by preop A1c of 5.1%. Transitioned back to full dose Metformin. Accuchecks suspended after several days of stable results demonstrated. 6. HTN - Controlled on combination therapy. Preferential use of diuretic postop until euvolemia established.
[2017-06-18 13:50] VITALS: BP 115/57; PULSE 63; TEMP 98.5; O2SAT 96
--- NOTE | 2017-06-18 17:14 | ASMTCMCOM ---
CM Note CM Note Notes: Reviewed chart, spoke w/ Nichol RN regarding discharge plan, pt's progress. Per notes, pt to discharge to [facility] today. Call placed to Cecilia w/ [facility]; per Cecilia, able to accept pt. Discharge orders and paperwork sent via [employer], confirmed receipt w/ Cecilia. Cecilia to arrange transport - [place] to grain picker pt at 1530, via wheelchair van w/ 2L oxygen. Update provided to pt. Pt to update his sister. [facility] alerted of pt's Talapia fish allergy, at pt request. RN to RN report called. IM signed. Pt to follow up as directed. CM avail for any further issues or concerns. Date Signed: 06/18/2017 05:14 PM Electronically Signed By:Kaylie Shen RN
--- NOTE | 2017-06-18 17:15 | ASDISCHSUM ---
Discharge Information Plan Status:SNF Medically Cleared to Leave:06/17/2017 Discharge Date:06/18/2017 04:07 PM CM D/C Disposition:Nursing Home Facility ADT D/C Disposition:Nursing Home Facility Projected Discharge Date:06/14/2017 11:00 AM Transportation at D/C:Wheelchair Van Discharge Delay Reason: Follow-Up Date:06/14/2017 11:00 AM Discharge Slot:2 - 12:01 pm - 18:00 pm Final Diagnosis:Ascending aortic replacement, aortic valve replacement, aortic aneurysm, paroxysmal acute anemia, diastolic CHF, DM 2, HTN, BPH Placement Information Referral Type:*[facility]/SNF Referral ID:[id number] Provider Name:[facility] Address 1:[address] Address 2: City:[place] Selection Factors:Patient/Family Choice State:[place] Patient Contact Information Contact Name:KIRILL Relationship:Other Address:[address] City:[place] Alternate Phone: State/Zip Code:[place] [address] Email: Financial Information Financial Class: Primary Plan Desc:MEDICARE INPATIENT Primary Plan Number:[id number] Secondary Plan Desc:[employer] Secondary Plan Number:[id number] Assessment Information [facility] CM Progress Note CM Note CM Note Notes: 72 year old male admitted for AAA and AV. Had an elective AAAR and AVR. He has a hx of CHF, DM-2, HTN. Therapies to eval, CM to follow for discharge needs. Date Signed: 06/08/2017 03:43 PM Electronically Signed By:Carmen Magallanes LCSW [facility] CM Progress Note CM Note CM Note Notes: Therapies recommending SNF Rehab. Spoke to patient and his sister, Nerissa and they would like if he could go to [facility]. [facility] sent a referral. Date Signed: 06/09/2017 03:37 PM Electronically Signed By:Carmen Magallanes LCSW [facility] CM Progress Note CM Note CM Note Notes: [facility] has accepted patient. Patient to get a GI consult today. CM will follow. Date Signed: 06/11/2017 03:35 PM Electronically Signed By:Madeline Rivas LCSW [facility] CM Progress Note CM Note CM Note Notes: Reviewed chart regarding discharge plan, pt's progress. Per MD notes, CTs remain in place, pacing wires out today. Pt slowly improving, eventual d/c to SNF. [facility] previously set up; already accepted pt. Will need to fax updates to [facility] Thursday or Thursday. CM will cont to follow. Current Discharge Plan: [facility] Date Signed: 06/14/2017 04:26 PM Electronically Signed By:Kaylie Shen RN [facility] CM Progress Note CM Note CM Note Notes: 06/16/2017 Case Management Note Reviewed chart, spoke w/pt. Answered questions regarding [facility]. Pt wanted to be sure he was not transferring to [facility]. Reassured pt that [facility] is the accepting facility. Confirmed placement with [facility] today. Case Management d/c poc: remains to [facility] when medically stable. Case Management available should needs change. Date Signed: 06/16/2017 03:34 PM Electronically Signed By:Shereen Malik RN [facility] Progress Note CM Note CM Note Notes: Reviewed chart, spoke w/ REGINA Gandara regarding discharge plan, pt's progress. Per notes, pt to discharge to [facility] today. Call placed to Cecilia w/ [facility]; per Cecilia, able to accept pt. Discharge orders and paperwork sent via [employer], confirmed receipt w/ Cecilia. Cecilia to arrange transport - [place] to [place]erry picker pt at 1530, via wheelchair van w/ 2L oxygen. Update provided to pt. Pt to update his sister. [facility] alerted of pt's Talapia fish allergy, at pt request. RN to RN report called. IM signed. Pt to follow up as directed. CM avail for any further issues or concerns. Date Signed: 06/18/2017 05:14 PM Electronically Signed By:Kaylie Shen RN Intervention Information Intervention Type:*IM-Signed Date of Service:06/18/2017 05:06 PM Patient Type:Inpatient Staff Member:REGINA Shen, Kaylie Hours: Discipline: Severity: Comment:
== END 2017-06-18 16:07 | DRG 220 ==
LOC: F2N 08:57 → F2W 06-12 11:14
PROVIDERS: ADMIT Thoracic Surgery (Cardiothoracic Vascular Surgery); ATTEND Thoracic Surgery (Cardiothoracic Vascular Surgery)
PROC: 04V00DZ Restriction of Abdominal Aorta with Intraluminal Device, Open Approach (ICD-10-PCS; principal; 2017-06-08 10:30)
PROC: 02RF08Z Replacement of Aortic Valve with Zooplastic Tissue, Open Approach (ICD-10-PCS; principal; 2017-06-08 10:30)
PROC: 5A1221Z Performance of Cardiac Output, Continuous (ICD-10-PCS; principal; 2017-06-08 10:30)
PROC: 30233K1 Transfusion of Nonautologous Frozen Plasma into Peripheral Vein, Percutaneous Approach (ICD-10-PCS; 2017-06-08 10:30)
PROC: 30233N1 Transfusion of Nonautologous Red Blood Cells into Peripheral Vein, Percutaneous Approach (ICD-10-PCS; 2017-06-08 10:30)
PROC: 30233R1 Transfusion of Nonautologous Platelets into Peripheral Vein, Percutaneous Approach (ICD-10-PCS; 2017-06-08 10:30)
DX: I35.1 Nonrheumatic aortic (valve) insufficiency (principal); D62 Acute posthemorrhagic anemia; I11.0 Hypertensive heart disease with heart failure; I50.32 Chronic diastolic (congestive) heart failure; I71.4 Abdominal aortic aneurysm, without rupture; I48.0 Paroxysmal atrial fibrillation; R00.1 Bradycardia, unspecified; I44.0 Atrioventricular block, first degree; E11.9 Type 2 diabetes mellitus without complications; N40.0 Benign prostatic hyperplasia without lower urinary tract symptoms
CPT/HCPCS: 82947-QW; 92507-GN; 92523-GN; 92526-GN; 92610-GN; 97110-GP; 97116-GP; 97162-GP; 97166-GO; 97530-GO; 97530-GP; 97532-GO; 97535-GO; C1768; G8978-GP-CL; G8979-GP-CI; G8987-GO-CJ; G8987-GO-CL; G8988-GO-CJ; G8989-GO-CJ; G8996-GN-CI; G8997-GN-CH; G8998-GN-CH; G9165-GN-CJ; G9166-GN-CI; J0153; J0282; J0360; J0690; J1100; J1265; J1644; J1815; J1885; J1940; J2001; J2150; J2250; J2260; J2310; J2370; J2405; J2704; J2720; J2765; J2930; J3010; J3430; J7060; P9012; P9016; P9017; P9035; P9041

== ENCOUNTER → 2017-06-23 | Outpatient (CLI) | payer OTHER | LOC: FIMAGING 08:48 | PROVIDERS: ATTEND Thoracic Surgery (Cardiothoracic Vascular Surgery) | DX: J90 Pleural effusion, not elsewhere classified (principal); Z86.79 Personal history of other diseases of the circulatory system; Z95.2 Presence of prosthetic heart valve ==